=== PATIENT | male | born 1935 | race Caucasian/White ===

== ENCOUNTER 2024-01-22 22:06 | Inpatient (IN) | payer MEDICARE, OTHER, SELFPAY ==
[2024-01-22] VITALS (9 sets, daily range): BP systolic 105–117; BP diastolic 52–64; BMI 19.9
--- NOTE | 2024-01-22 14:05 | ED.GENMED ---
History of Present Illness
General
Chief Complaint: Fever
Source: patient
Exam Limitations: none
Time Seen by Provider: 01/22/24 13:33
History of Present Illness
History of Present Illness:
88-year-old male never been here before presents from [facility] for lethargy and fever. EMS reports that he had some type of procedure on his scrotum yesterday at a different facility. He is a resident of [facility]. Patient is a limited
historian. He denies pain currently. He is unsure why he is in the hospital. Staff at facility noticed change in his cognition from baseline.
Phy Exam
Physical Exam
Physical Exam:
General:well-developed male no acute respiratory distress slightly cachectic in appearance
HEENT: Normocephalic mucosa dry neck is supple
Heart: Regular rate and rhythm no murmurs
Lungs: Clear no wheeze
Abdomen is soft nontender nondistended
exam: There is scrotal swelling. There is an open wound to the left side of the scrotum without drainage.
Extremities: No cyanosis
Neurologic exam: Responsive verbal stimuli oriented to person. No facial asymmetry or unilateral weakness
Course
Orders/Labs/Results
Orders:
Orders
01/22/24 13:56
CR Chest Portable - 1 View Urgent
Comment:
Reason For Exam: fever
Reason Study Needs to be Portable: Unable to Transport
01/22/24 14:00
COVID-19 Antigen Urgent
Source: Nasal Swab
Complete Blood Count/With Diff Urgent
Comprehensive Metabolic Panel Urgent
Lactic Acid Q4H
Comment: CANCEL 2nd LACTIC ACID IF 1st LACTIC ACID IS LESS THAN 2
Blood Culture Routine
SHREYA Source: Blood/Venous
Specimen Description:
Blood Culture Urgent
SHREYA Source: Blood/Venous
Specimen Description:
Influenza A+B Rapid Molecular Urgent
SHREYA Source: Nasal Swab
Specimen Description:
01/22/24 15:12
Lidocaine 2% [Lidocaine Uro-Jet 2%] 1 syringe .ROUTE .[facility]
01/22/24 15:24
Urinalysis Reflex To Culture Urgent
Date Specimen was Collected: 01/22/24
Time Specimen was Collected: 15:22
Urine Microscopic Reflex Cult Urgent
Urine Culture Urgent
SHREYA Source: U
Specimen Description:
Date Specimen was Collected: 01/22/24
Time Specimen was Collected: 15:22
01/22/24 17:47
CT Abd/pelvis W Iv Cont Urgent
Comment:
Reason For Exam: lower abdominal pain
01/22/24 20:03
CefTRIAXone [Rocephin] 1,000 mg IV NOW STA
Abnormal Lab Results
01/22/24 01/22/24
14:00 15:24
RBC 3.98 L 10^6/uL
(4.70-6.10)
Hgb 12.7 L g/dL
(13.0-18.0)
Hct 37.9 L %
(39.0-52.0)
MCV 95.2 H fL
(80.0-94.0)
MCH 31.9 H pg
(27.0-31.0)
Absolute Lymphs (auto) 0.4 L 10^3/uL
(1.2-3.4)
Neutrophils % 79.2 H %
(42.2-75.2)
Lymphocytes % 7.9 L %
(20.5-51.1)
Carbon Dioxide 31 H mmol/L
(22-30)
BUN 21 H mg/dl
(9-20)
Total Protein 6.1 L g/dl
(6.3-8.2)
Urine Ketones Trace A
(Negative)
Urine Nitrite (Reflex) Positive A
(Negative)
Urine Bilirubin 1+ A
(Negative)
Urine Urobilinogen 2+ A
(Neg - 1+)
Leukocyte Esterase Rfl Trace A
(Negative)
Urine Bacteria (Reflex) Moderate A
(Negative)
01/22/24 14:00
01/22/24 14:00
Vital Signs
Initial and Last Documented VS:
Initial Vital Signs
Temp Pulse Resp BP Pulse Ox
99.3 F 69 18 108/56 97
01/22/24 13:40 01/22/24 13:40 01/22/24 13:40 01/22/24 13:40 01/22/24 13:40
Last Documented Vital Signs
Temp Pulse Resp BP Pulse Ox
99.3 F 64 16 107/56 97
01/22/24 13:40 01/22/24 19:00 01/22/24 19:00 01/22/24 17:00 01/22/24 19:00
MDM/Problems Addressed
Differential Diagnosis Includes:
Fatigue reported fever. Question Flu vs COVID versus viral illness. Patient allegedly had a procedure performed yesterday on his scrotum. Attempting to call facility or obtain records. Patient is unaware of the procedure.
Will check labs lactic acid blood culture chest x-ray urinalysis.
*Critical Care Note
Total Time (30-74mins, 75-104mins- exclusive of procedures): Not Applicable
Update Note
Update Note:
UA with UTI.
Spoke with family over the phone several times. They were able to relay that on January 15 at [facility], patient was supposed to have a hydrocelectomy on the left side. He was taken to the OR and incision was made and he was found not to
have a hydrocele. He was thought then to have a hernia. He is due to see a general surgeon as outpatient. Today at the facility the patient was not himself he had a fever. I spoke with nurse at [facility]. They documented a fever at their
facility. They were not able to tell me the temperature it was. They also noted that the wound on his left side of his scrotum opened up today. They were concerned about infection of the wound. CT of the abdomen was performed which demonstrates
a large inguinal hernia with large amount of stool in the hernia without signs of incarceration or strangulation. There is concern with a large amount of stool throughout the colon to suggest fecal impaction. After speaking with the family they
were unhappy with their care at [facility] and prefer not to go back there. They also are concerned about him going to multiple facilities with his dementia. Family request he stay here at [facility] for further evaluation and treatment. Will give
a dose of Rocephin for his UTI. Will admit for further evaluation for fever and UTI.
ED Attending Note
-
Portions of this chart may have been created with voice recognition software.� Occasional wrong word or��sound alike� substitutions may have occurred due to the inherent limitations of voice recognition software.
Discharge Plan
Departure
Patient Disposition: Admit
Date of Disposition: 01/22/24
Time of Disposition: 20:15
Admit to: Telemetry
Presentation/result/management discussed w/ accepting MD/DO: Hospitalist
Discharge Problem:
Acute UTI, Inguinal hernia
Prescriptions:
No Action
loperamide [Anti-Diarrheal (loperamide)] 2 mg Capsule
4 mg PO Q6HPRN PRN (Reason: diarrhea)
thiamine HCl (vitamin B1) 100 mg Tablet
100 mg PO DAILY
guaifenesin 100 mg/5 mL Liquid
200 mg PO Q4HPRN PRN (Reason: cough)
lorazepam 0.5 mg Tablet
0.5 mg PO Q6HPRN PRN (Reason: anxiety)
folic acid 1 mg Tablet
1 mg PO DAILY
divalproex 125 mg Capsule, Delayed Rel Sprinkle
125 mg PO BID
amoxicillin-pot clavulanate 500-125 mg Tablet
1 tab PO BID
mirtazapine 7.5 mg Tablet
15 mg PO HS
aripiprazole 2 mg Tablet
2 mg PO DAILY
Referrals:
Dieudonne Ta DO [Family Provider] -
Interventions
Interventions:
*Risk Screen - Suicide Last Done: 01/22/24 13:55
*General Assessment Last Done: 01/22/24 13:40
*Neglect/Abuse Screening Last Done: 01/22/24 13:40
*ED COVID-19 Vaccine History Last Done: 01/22/24 13:56
ED- Neurological Assessment Last Done: 01/22/24 14:57
ED-Skin Assessment Last Done: 01/22/24 14:57
Discharge Date and Time
Print Language: CHINESE
[2024-01-22 14:21] LABS: % Basophils 0.5 % (0-2); % Eosinophils 3.4 % (0-6); % Immature Granulocytes 0.4 % (0-0.5); % Lymphocytes 7.9 % (20.5-51.1); % Monocytes 8.6 % (1.7-9.3); % Neutrophils 79.2 % (42.2-75.2); Absolute Eosinophils 0.2 10^3/uL (0-0.7); Absolute Lymphocytes 0.4 10^3/uL (1.2-3.4); Absolute Monocytes 0.5 10^3/uL (0.1-0.6); Absolute Neutrophils 4.4 10^3/uL (1.4-6.5); Hematocrit 37.9 % (39.0-52.0); Hemoglobin 12.7 g/dL (13.0-18.0); Mean Corp Hgb Conc. 33.5 g/dL (33.0-37.0); Mean Corpuscular Hgb 31.9 pg (27.0-31.0); Mean Corpuscular Volume 95.2 fL (80.0-94.0); Mean Platelet Volume 9.6 fL (7.4-10.4); Nucleated Red Blood Cells % 0 % (-); Platelet Count 239 10^3/uL (130-400); Red Blood Cell Count 3.98 10^6/uL (4.70-6.10); Red Cell Dist. Width 13.4 % (11.5-14.5); White Blood Cell Count 5.6 10^3/uL (4.8-10.8)
[2024-01-22 14:37] LABS: ALT (SGPT) 19 U/L (0-50); AST (SGOT) 32 U/L (17-59); Albumin 3.5 g/dl (3.5-5.0); Alkaline Phosphatase 100 U/L (38-126); Blood Urea Nitrogen 21 mg/dl (9-20); Calcium 8.9 mg/dl (8.4-10.2); Carbon Dioxide 31 mmol/L (22-30); Chloride 101 mmol/L (98-107); Estimated Creatinine Clearance 55 ml/min; Glucose 95 mg/dl (70-99); Lactic Acid 1.1 mmol/L (0.7-2.0); Potassium 4.1 mmol/L (3.5-5.1); Sodium 139 mmol/L (135-145); Total Bilirubin 0.8 mg/dl (0.2-1.3); Total Protein 6.1 g/dl (6.3-8.2); eGFR > 60.00
[2024-01-22 14:57] LABS: COVID-19 Antigen Negative (Negative)
[2024-01-22 15:40] LABS: Urine Albumin Trace (Neg - Trace); Urine Bilirubin 1+ (Negative); Urine Character Clear (Clear); Urine Color Yellow; Urine Glucose Negative (Negative); Urine Ketone Trace (Negative); Urine Leukocyte Trace (Negative); Urine Nitrite Positive (Negative); Urine Occult Blood Negative (Negative); Urine Specific Gravity 1.025 (<1.030); Urine Urobilinogen 2+ (Neg - 1+)
[2024-01-22 15:54] LABS: Urine Red Blood Cell 0-2 /HPF (0-2); Urine Squamous Cell 0-2 /LPF (Few)
[2024-01-22 15:55] LABS: Urine Bacteria Moderate (Negative); Urine White Cell 0-2 /HPF (0-5)
[2024-01-22] MEDS: ROCEPHIN 1000 MG IV (20:11)
--- NOTE | 2024-01-22 21:29 | CON.GS ---
Medical History
-
Chief Complaint: Dehiscence LEFT scrotal incision, left inguinal hernia
History of Present Illness:
Patient is an 88 yo M with a PMH notable for advanced dementia, seizure disorder, and recent attempted trans scrotal hydrocelectomy by urologist at [place] on 01/16/2024. Per report, at the time of that surgery that identified an inguinal
hernia and aborted the procedure. Since that time he has had opening of his scrotal wound. He has been found to be febrile and lethargic at [facility] prompting presentation to the ER. History is otherwise limited due to patient's severe
dementia. No reports of nausea, vomiting, or inability to pass stool. Reports of LEFT groin pain.
Past Medical History
Past Medical History: Psychiatric (Dementia, seizures)
Past Surgical History: Urological (Attempted hydrocelectomy at [place] on 01/16/2024.)
Social History
Tobacco: Non-Smoker
Alcohol: None
Drug: None
Family History
Family History: Reviewed & Not Pertinent
Allergies / Home Medications
Allergy/AdvReac Type Severity Reaction Status Date / Time
No Known Allergies Allergy Unverified 01/22/24 13:39
�Medication �Instructions �Recorded �Confirmed �Type
amoxicillin 500 mg-potassium 1 tab PO BID 01/22/24 01/22/24 History
clavulanate 125 mg tablet
aripiprazole 2 mg tablet 2 mg PO DAILY 01/22/24 01/22/24 History
divalproex 125 mg capsule,delayed 125 mg PO BID 01/22/24 01/22/24 History
release sprinkle
folic acid 1 mg tablet 1 mg PO DAILY 01/22/24 01/22/24 History
guaifenesin 100 mg/5 mL oral liquid 200 mg PO Q4HPRN PRN cough 01/22/24 01/22/24 History
loperamide 2 mg capsule 4 mg PO Q6HPRN PRN diarrhea 01/22/24 01/22/24 History
(Anti-Diarrheal (loperamide))
lorazepam 0.5 mg tablet 0.5 mg PO Q6HPRN PRN anxiety 01/22/24 01/22/24 History
mirtazapine 7.5 mg tablet 15 mg PO HS 01/22/24 01/22/24 History
thiamine HCl (vitamin B1) 100 mg 100 mg PO DAILY 01/22/24 01/22/24 History
tablet
Review of Systems
-
A 10 point review of systems was completed, and was negative except as per HPI.
Physical Exam
Vital Signs
Temp Pulse Resp BP Pulse Ox
98.4 F 73 16 110/54 98
01/22/24 20:30 01/22/24 20:30 01/22/24 20:30 01/22/24 20:00 01/22/24 20:30
01/21/24 01/22/24 01/23/24
06:59 06:59 06:59
Actual Weight 66.5 kg
Body Mass Index (BMI) 19.9
Lab Results
01/22/24 14:00
01/22/24 14:00
WBC 5.6 10^3/uL (4.8-10.8) 01/22/24 14:00
Hgb 12.7 g/dL (13.0-18.0) L 01/22/24 14:00
Hct 37.9 % (39.0-52.0) L 01/22/24 14:00
Plt Count 239 10^3/uL (130-400) 01/22/24 14:00
Abs Immat Gran (auto) 0.0 10^3/uL (0-0.05) 01/22/24 14:00
Neutrophils % 79.2 % (42.2-75.2) H 01/22/24 14:00
Physical Exam
General: Well Developed, Well Nourished and No Apparent Distress
HEENT: Normocephalic and Anicteric
Respiratory: Non Labored Respirations
Cardiac: Regular Rhythm
GI: Soft, Non Tender and Non Distended
Genito-urinary: Inguinal Hernia (Large LEFT inguinal scrotal hernia, partially reduced, tender with palpation, trans scrotal excision with fibrinous debris, no active purulence or bleeding, visible bowel underlying)
Skin: Warm and Dry
Neuro: Nonfocal/Grossly Intact
Data Reviewed
-
CT Scan: Image Personally Visualized and interpreted and Report Reviewed by me
Labs: Labs Reviewed by me
Assessment / Plan
-
Patient is a 88 yo M p/w large LEFT inguinal scrotal hernia with concern for exposed bowel via recently made Villareal scrotal incision
Low concern for bowel ischemia given the partially reducible nature of his hernia, CT scan imaging, normal WBC, and healthy mucosa of the visible bowel. That being said, the presence of visible bowel via an open wound necessitates more urgent
repair.
Plan for a open LEFT inguinal hernia repair with possible mesh (likely biologic, given increased risk for infections with UTI and contaminated nature of his presentation). The procedure itself, as well as the risks, benefits, and alternatives was
discussed with the patient's DPOA (Yandel Lambert). Specifically, we discussed the risks of bleeding, infection (increased risk), injury to surrounding structures (bowel, nerves, blood supply the testicle, and vas deferens), wound complications,
and recurrence. Typical postprocedural recovery was discussed. All questions answered. Telephone consent obtained.
-- Open LEFT inguinal hernia repair with possible mesh
-- NPO, IVF
-- Abx: Rocephin admin in ED will add Flagyl for improved GI coverage, would tentatively plan for treatment from a GI standpoint for 4 days in addition to coverage for his UTI
-- Admit to Hospitalist post-op
--- NOTE | 2024-01-22 21:48 | W.SUR.PREOP ---
Pre-Operative Surgical Note
-
I have examined this patient prior to the performance of the scheduled procedure.
The patient's condition is unchanged from the time of the current History and
Physical and the patient is able to undergo the scheduled procedure.
--- NOTE | 2024-01-22 23:45 | W.IMMPOSTOP ---
Surgical Immed Post Op Note
-
Primary Surgeon: Gayr
Assisting Surgeon: None
Pre-op Diagnosis: LEFT inguinal hernia, scrotal wound dehiscence
Post-op Diagnosis: LEFT inguinal hernia, scrotal wound dehiscence
Procedure Performed: Open LEFT inguinal hernia repair with mesh, scrotal wound exploration
Anesthesia Type: General
Specimen / Cultures: None
Estimated Blood Loss: 7 cc
Complications: None
Operative Findings:
1. Large inguinoscrotal hernia containing colon, viable
2. Yeison mesh repair with Phasix mesh over Bassini suture repair to recreate floor
3. Scrotal wound packed with WTD gauze
Plan:
-- Routine post-op care, ADAT tomorrow and pain meds
-- Aggressive bowel regimen to prevent constipation as visualized on CT
-- Abx: coverage for UTI should be sufficient
[2024-01-23] VITALS (16 sets, daily range): BP systolic 102–134; BP diastolic 48–70; PULSE 75; O2SAT 97–98; BMI 21.1
--- NOTE | 2024-01-23 00:12 | HPS.HSE ---
Family Physician
-
Family Physician: Dieudonne Ta
Chief Complaint
-
Open Wound
History of Present Illness
Patient is an 88y M with PMH significant for dementia and recent surgery who presents to ED for evaluation of open L scrotal wound. History obtained from patient and ED staff. Patient reportedly underwent surgery at [facility] on 01/16/24. The
surgery was for suspected hydrocele; however, once scrotal sac was opened it was noted that the contents were bowel / hernia and not hydrocele. No further intervention was apparently performed at that time. Patient was discharged and today noted
to have an open wound of the L scrotum. He was sent to the ED for further evaluation and treatment.
Patient denies any pain. He denies any fevers / chills. He states that he has had 'trouble' urinating for the past 24 hours or so - though he cannot be more specific.
Evaluation in the ED reveals an open wound on the L lower scrotum without bleeding or discharge. There is L inguinal hernia with bowel contents by exam and by CT imaging.
Patient was evaluated by Surgery and taken to the OR this evening for L inguinal hernia repair and scrotum wound exploration.
Medical History
Past Medical History
Past Medical History: Reports Other
Additional Past Medical History:
Senile Dementia
Past Surgical History: Reports Other
Additional Past Surgical History:
Left Hydrocele Repair - Aborted / No Hydrocele
Social History
Tobacco: Non-smoker
Alcohol: Occasional
Drug: None
Family History
Family History: Not pertinent
Allergies / Home Medications
Allergies reflects when Allergies were last updated in [facility].
Home Medications with original date entered in [facility]
Allergy/Medication List:
Allergies
Allergy/AdvReac Type Severity Reaction Status Date / Time
No Known Allergies Allergy Unverified 01/22/24 13:39
Home Medications
amoxicillin 500 mg-potassium clavulanate 125 mg tablet 1 tab PO BID 01/22/24
aripiprazole 2 mg tablet 2 mg PO DAILY 01/22/24
divalproex 125 mg capsule,delayed release sprinkle 125 mg PO BID 01/22/24
folic acid 1 mg tablet 1 mg PO DAILY 01/22/24
guaifenesin 100 mg/5 mL oral liquid 200 mg PO Q4HPRN PRN cough 01/22/24
loperamide 2 mg capsule (Anti-Diarrheal (loperamide)) 4 mg PO Q6HPRN PRN diarrhea 01/22/24
lorazepam 0.5 mg tablet 0.5 mg PO Q6HPRN PRN anxiety 01/22/24
mirtazapine 7.5 mg tablet 15 mg PO HS 01/22/24
thiamine HCl (vitamin B1) 100 mg tablet 100 mg PO DAILY 01/22/24
Review of Systems
-
History Source: Patient
A 12 point ROS was completed and negative except as noted: Yes
Constitutional: Denies Fever or Chills
Respiratory: Denies Cough or Trouble Breathing
Cardiac: Denies Chest Pain or Palpitations
Abdomen/GI: Reports Constipated; Denies Abdominal Pain, Nausea or Vomiting
: Reports Difficulty Voiding; Denies Dysuria or Frequency
Musculoskeletal: Denies Joint Pain or Edema
Neurological: Denies Dizzy or Headache
Psych: Denies Depression or Anxiety
Physical Exam
Vital Signs
Vital Signs
Temp Pulse Resp BP Pulse Ox
99.3 F 64 18 122/52 97
01/22/24 23:48 01/23/24 00:00 01/23/24 00:00 01/23/24 00:00 01/23/24 00:00
Physical Exam
General: Other (88y M in no acute distress.)
HEENT: Moist mucous membranes and PERRLA
Respiratory: Clear; No Wheezes, Rales or Rhonchi
Cardiac: S1/S2 and Regular Rhythm; No Murmur
GI: Soft, Non Tender, Non Distended and Normal Bowel Sounds
Genito-urinary: Other (Enlarged scrotum with bowel contents / pos bowel sounds. No focal tenderness. Wound / defect L lower scrotum without erythema / induration / bleeding or discharge. Bleeding from urethra.)
Musculoskeletal: No Clubbing, No Cyanosis and No Edema
Neuro: Awake and Alert
Psych: No Anxious or Depressed
Laboratory Results
-
Laboratory Results
Lactic Acid Cancelled 01/22/24 18:00
Total Bilirubin 0.8 mg/dl (0.2-1.3) 01/22/24 14:00
AST 32 U/L (17-59) 01/22/24 14:00
ALT 19 U/L (0-50) 01/22/24 14:00
Alkaline Phosphatase 100 U/L (38-126) 01/22/24 14:00
Impression/Plan
-
A/P: Patient is an 88y M with PMH significant for dementia who presents to ED for evaluation of L scrotal wound after recent surgery.
Left Inguinal Hernia
Scrotal Wound Dehiscence
- Admit for further evaluation and treatment.
- s/p open inguinal hernia repair with mesh and scrotal wound exploration / packing.
- Colon in the hernia sac was viable.
- Post-op pain control, abx, etc.
- Local care for scrotal wound / packing / etc.
- Follow for any new / worsening symptoms.
Possible UTI
- Patient started on Augmentin at nursing facility on 01/15 for suspected UTI.
- UA in the ED today with bacteria and nitrites but no WBC (? due to pre-existing abx).
- Continue IV abx for now pending culture data.
- Bladder scan protocol and straight cath if needed.
Senile Dementia with Behavioral Disturbance
- Stable. Patient not currently agitated, anxious, etc.
- Continue usual home medication regimen.
- Haldol PRN for acute agitation.
DVT Prophylaxis: Lovenox
Code Status: DNR per POLST
--- NOTE | 2024-01-23 00:50 | PTCARENOTE ---
Pt arrived to room 433-01 with PACU nurses. Upon arrival, pt noted to be nonverbal, eyes open moving hands, not responding to verbal stimuli. RN bringing pt up stated, 'Dr. Hughes is aware of his nonverbal status, said it will pass by- by morning
time.' Pt VSS.
--- NOTE | 2024-01-23 01:20 | RR ---
A Rapid Response was called on this patient, please see Rapid Response form.
Pt nonverbal, not responding to stimuli upon arrival from PACU. Unable to complete NIH. RIBBON BLOCKMAKER Justina Souza notified. RIBBON BLOCKMAKER at bedside ordered to call rapid with stroke alert. Rapid and stroke alert called. EKG done, BP 124/61, HR 66, R 14, 94% RA,
97.5, BS 96. BMP, CBC, Mag ordered. Upon arrival of MANAGER VALIDATION, pt alert answering questions. STAT head CT ordered. No further orders.
[2024-01-23] MEDS: NSS 1000 IV ×2 (01:22→08:41)
--- NOTE | 2024-01-23 01:22 | W.PN.UPDATE ---
Update Note
Progress Note Update
JIG BORING MACHINE OPERATOR FOR METAL/ Stroke alert
Patient is awake, open his eyes but not responding to verbal stimuli, not following direction. Vital signs within normal limits Bs 96, bp 124/59, 66, RR 14, temp 97.5.
By the time that JIG BORING MACHINE OPERATOR FOR METAL team arrived, patient back to baseline. Discussed the case with neurologist environmental scientists.
Plan to process with head CT and patient will be seen by neurology in am.
Head CT result shows no acute abnormalities.
[2024-01-23 01:33] LABS: Glucose - Point of Care 96 mg/dl (70-99)
[2024-01-23] MEDS: REMERON PO (01:41)
[2024-01-23 01:50] LABS: Hematocrit 39.5 % (39.0-52.0); Hemoglobin 13.6 g/dL (13.0-18.0); Mean Corp Hgb Conc. 34.4 g/dL (33.0-37.0); Mean Corpuscular Hgb 32.2 pg (27.0-31.0); Mean Corpuscular Volume 93.4 fL (80.0-94.0); Mean Platelet Volume 9.2 fL (7.4-10.4); Platelet Count 222 10^3/uL (130-400); Red Blood Cell Count 4.23 10^6/uL (4.70-6.10); Red Cell Dist. Width 13.4 % (11.5-14.5); White Blood Cell Count 9.4 10^3/uL (4.8-10.8)
[2024-01-23 02:01] LABS: Blood Urea Nitrogen 17 mg/dl (9-20); Calcium 8.5 mg/dl (8.4-10.2); Carbon Dioxide 24 mmol/L (22-30); Chloride 102 mmol/L (98-107); Estimated Creatinine Clearance 75 ml/min; Glucose 101 mg/dl (70-99); Potassium 3.8 mmol/L (3.5-5.1); Sodium 142 mmol/L (135-145); eGFR > 60.00
[2024-01-23] MEDS: SENOKOT PO (02:19)
[2024-01-23] MEDS: ZOSYN 50 IV ×4 (02:20→20:34)
[2024-01-23 05:40] LABS: Magnesium 2.1 mg/dl (1.6-2.3)
[2024-01-23] MEDS: COLACE 100 MG PO ×2 (08:30→20:34)
[2024-01-23] MEDS: VITAMIN B1 100 MG PO (08:30)
[2024-01-23] MEDS: DEPAKOTE SPRINKLE 125 MG PO ×2 (08:30→20:34)
[2024-01-23] MEDS: MIRALAX 17 GRAMS PO (08:30)
[2024-01-23] MEDS: DULCOLAX 10 MG RECTAL (08:30)
[2024-01-23] MEDS: FOLVITE 1 MG PO (08:30)
--- NOTE | 2024-01-23 08:40 | PTCARENOTE ---
Addendum entered by Belkys Benitez RN 01/23/24 16:42:
01/22- Patient is calm and cooperative when brought out to Nurses Station. AAOX1; Flat affect; Confused but Calm/Cooperative. Seen by Urology. Urology advised if Acute Urinary Retention is still persisting upon next bladder scan, then administer
a Da Silva Catheter. Patient able to eat his Clear Liquid diet with occasional coughing upon oral intake. Speech Eval previously placed. Continue to monitor.
Original Note:
01/22- Patient is impulsive; repeatedly removing telemetry and dipens. He tugs at his IV, but R-forearm IV is still CDI, infusing fluids without issue. He made 1 attempt to get out of bed on his own. Bed Alarm intact. Requested MedSitter;
Notified Physician. Patient able to be redirected without issue each time. Continue to monitor.
--- NOTE | 2024-01-23 08:40 | CON.NEURO ---
Consultation
Order
Date of Consultation: 01/23/24
Requesting Provider: Justina Souza CRNP
Reason for Consult: encephalopathy
CC: none
HPI: This is an 88-year-old man who presented to [facility] on January 22, 2024 with fever and lethargy. He underwent open left inguinal hernia repair with mesh, scrotal wound exploration
of the large inguinoscrotal hernia.
Neurology consultation was requested for further evaluation and management of a spell of staring and unresponsiveness that was witnessed around 1:00 AM on 01/23/2024.
According to EMR patient is on divalproex 125 mg BID that he has not received on 01/22/2024 based on MAR
ER VS: 108/56, 69, afebrile
PDMP:Lorazepam 0.5 Mg�30 tabs filled in on 11/19/2023.
Labs: Glucose 101, normal WBCs, calcium, UA�positive for leukocyte esterase, nitrates, bacteria
CT head-atrophy
PMH:dementia, seizure DO, ALEXUS, PTSD
PSH: left inguinal hernia repair, appendectomy
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
FH:not contributory
All:NKDA
ROS: Negative for headache, weakness. Positive for chronic cognitive deficits.
General: Well developed. In no acute distress.
Cardio: Regular rate and rhythm without murmur. Extremities are without cyanosis or edema.
Neuro:
Mental Status: Alert, oriented to name, age, date of , president. Poor attention and comprehension. Follows simple requests. Increased processing time. Perseverates. Expressive greater than receptive aphasia.
Cranial Nerves: Pupils are equally round and reactive to light. EOMs full. BTT BL No ptosis. No nystagmus. No facial weakness. No dysarthria.
Motor: Increased motor tone in upper and lower extremities. Moves all limbs spontaneously purposefully symmetrical.
Reflexes: Bilateral grasp
Sensory: Limited exam due to poor attention
Coordination: Intermittent resting right hand tremor.
Gait: deferred
Assessment and Plan:
I. Transient spell of starring and speech arrest. Probable complex focal seizure.
II. Chronic neurodegenerative encephalopathy.
III. 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
-Fall and seizure precautions
-Restart Depakote
-Avoid dopamine blockers
-Will obtain collateral history from patient's family about cognitive and functional baseline clarify history of epilepsy.
-PT
-DVT prophylaxys
I personally reviewed all radiology and labs along with past medical records pertinent to current medical problems. Total time spent in patient care is 60 minutes.
Thank you for allowing us to participate in the care of this patient. We will continue to follow. Please do not hesitate to contact us with any questions or concerns.
Subjective/Objective
Subjective Data
Date of Service: January 23, 2024
Objective Data
Vital Signs
Temp Pulse Resp BP Pulse Ox
36.4 C 80 16 122/59 95
01/23/24 07:05 01/23/24 07:05 01/23/24 07:05 01/23/24 07:05 01/23/24 07:05
Lab Results
01/23/24 01:30
01/23/24 01:30
Sodium 142 mmol/L (135-145) 01/23/24 01:30
Potassium 3.8 mmol/L (3.5-5.1) 01/23/24 01:30
BUN 17 mg/dl (9-20) 01/23/24 01:30
Glucose 101 mg/dl (70-99) H 01/23/24 01:30
Calcium 8.5 mg/dl (8.4-10.2) 01/23/24 01:30
Patient Allergies
No Known Allergies Allergy (Unverified 01/22/24 13:39)
Medications
-
Active Medications
Generic Name Dose Route Start Last Admin
Trade Name Freq PRN Reason Stop Dose Admin
Acetaminophen 650 mg 01/22/24 21:44
Acetaminophen 325 Mg Tablet PO 02/19/24 21:43
Q4HPRN PRN
mild pain
Aripiprazole 2 mg 01/23/24 08:00
Aripiprazole 2 Mg Tablet PO 02/20/24 07:59
DAILY JORI
Bisacodyl 10 mg 01/23/24 08:00
Bisacodyl 10 Mg Rectal Suppository RECTAL 02/20/24 07:59
DAILY JORI
Divalproex Sodium 125 mg 01/23/24 08:00
Divalproex Sodium 125 Mg Sprinkle Capsule PO 02/20/24 07:59
BID JORI
Docusate Sodium 100 mg 01/23/24 08:00
Docusate Sodium 100 Mg Capsule PO 02/20/24 07:59
BID JORI
Enoxaparin Sodium 40 mg 01/23/24 18:00
Enoxaparin Sodium 40 Mg/0.4 Ml Syringe SC 02/20/24 17:59
QPM JORI
Folic Acid 1 mg 01/23/24 08:00
Folic Acid 1 Mg Tablet PO 02/20/24 07:59
DAILY JORI
Haloperidol Lactate 1 mg 01/22/24 23:36
Haloperidol 5 Mg/Ml 1 Ml Vial IV 02/19/24 23:35
Q4HPRN PRN
Agitation
Sodium Chloride 1,000 mls @ 100 mls/hr 01/22/24 23:36 01/23/24 01:22
Nss IV 1,000 mls
.Q10H JORI Administration
Piperacillin Sod/Tazobactam Sod 3.375 gram in 50 mls @ 100 mls/hr 01/23/24 02:00 01/23/24 02:20
Zosyn IV 50 mls
Q6H JORI Administration
Mirtazapine 15 mg 01/22/24 23:00 01/23/24 01:41
Mirtazapine 15 Mg Regular Release Tablet PO 02/19/24 22:59 Not Given
HS JORI
Morphine Sulfate 2 mg 01/23/24 08:37
Morphine 2 Mg/Ml Syringe IV 02/06/24 08:36
Q4HPRN PRN
severe pain
Ondansetron HCl 4 mg 01/22/24 23:36
Ondansetron 4 Mg/2 Ml Vial IV 02/19/24 23:35
Q6HPRN PRN
nausea and vomiting
Oxycodone HCl 5 mg 01/23/24 08:37
Oxycodone 5 Mg Regular Release Tablet PO 02/06/24 08:36
Q4HPRN PRN
mod pain
Polyethylene Glycol 17 grams 01/23/24 08:00
Polyethylene Glycol Powder 17 Grams Packet PO 02/20/24 07:59
DAILY JORI
Sennosides 17.2 mg 01/22/24 23:36 01/23/24 02:19
Sennosides (Senokot) 8.6 Mg Tablet PO 02/19/24 23:35 Not Given
HS JORI
Sodium Chloride 0 flush 01/22/24 22:00
Sodium Chloride 0.9% (Flush) Syringe IV 02/19/24 21:59
PER PROTOCOL JORI
Sodium Chloride 0 flush 01/22/24 22:00
Sodium Chloride 0.9% (Flush) Syringe IV 02/19/24 21:59
PER PROTOCOL JORI
Thiamine HCl 100 mg 01/23/24 08:00
Thiamine 100 Mg Tablet PO 02/20/24 07:59
DAILY JORI
Home Medications
�Medication �Instructions �Recorded
amoxicillin 500 mg-potassium 1 tab PO BID 01/22/24
clavulanate 125 mg tablet
aripiprazole 2 mg tablet 2 mg PO DAILY 01/22/24
divalproex 125 mg capsule,delayed 125 mg PO BID 01/22/24
release sprinkle
folic acid 1 mg tablet 1 mg PO DAILY 01/22/24
guaifenesin 100 mg/5 mL oral liquid 200 mg PO Q4HPRN PRN cough 01/22/24
loperamide 2 mg capsule 4 mg PO Q6HPRN PRN diarrhea 01/22/24
(Anti-Diarrheal (loperamide))
lorazepam 0.5 mg tablet 0.5 mg PO Q6HPRN PRN anxiety 01/22/24
mirtazapine 7.5 mg tablet 15 mg PO HS 01/22/24
thiamine HCl (vitamin B1) 100 mg 100 mg PO DAILY 01/22/24
tablet
Vital Signs and Labs
-
Vital Signs and Labs:
Vital Signs
Temp Pulse Resp BP Pulse Ox
36.4 C 80 16 122/59 95
01/23/24 07:05 01/23/24 07:05 01/23/24 07:05 01/23/24 07:05 01/23/24 07:05
Lab Results
01/23/24 01:30
01/23/24 01:30
Sodium 142 mmol/L (135-145) 01/23/24 01:30
Potassium 3.8 mmol/L (3.5-5.1) 01/23/24 01:30
BUN 17 mg/dl (9-20) 01/23/24 01:30
Glucose 101 mg/dl (70-99) H 01/23/24 01:30
Calcium 8.5 mg/dl (8.4-10.2) 01/23/24 01:30
Medications
-
Medications:
Generic Name Dose Route Start Last Admin
Trade Name Freq PRN Reason Stop Dose Admin
Acetaminophen 650 mg 01/22/24 21:44
Acetaminophen 325 Mg Tablet PO 02/19/24 21:43
Q4HPRN PRN
mild pain
Aripiprazole 2 mg 01/23/24 08:00
Aripiprazole 2 Mg Tablet PO 02/20/24 07:59
DAILY JORI
Bisacodyl 10 mg 01/23/24 08:00 01/23/24 08:30
Bisacodyl 10 Mg Rectal Suppository RECTAL 02/20/24 07:59 10 mg
DAILY JORI Administration
Divalproex Sodium 125 mg 01/23/24 08:00 01/23/24 08:30
Divalproex Sodium 125 Mg Sprinkle Capsule PO 02/20/24 07:59 125 mg
BID JORI Administration
Docusate Sodium 100 mg 01/23/24 08:00 01/23/24 08:30
Docusate Sodium 100 Mg Capsule PO 02/20/24 07:59 100 mg
BID JORI Administration
Enoxaparin Sodium 40 mg 01/23/24 18:00
Enoxaparin Sodium 40 Mg/0.4 Ml Syringe SC 02/20/24 17:59
QPM JORI
Folic Acid 1 mg 01/23/24 08:00 01/23/24 08:30
Folic Acid 1 Mg Tablet PO 02/20/24 07:59 1 mg
DAILY JORI Administration
Haloperidol Lactate 1 mg 01/22/24 23:36
Haloperidol 5 Mg/Ml 1 Ml Vial IV 02/19/24 23:35
Q4HPRN PRN
Agitation
Sodium Chloride 1,000 mls @ 100 mls/hr 01/22/24 23:36 01/23/24 08:41
Nss IV 1,000 mls
.Q10H JORI Administration
Piperacillin Sod/Tazobactam Sod 3.375 gram in 50 mls @ 100 mls/hr 01/23/24 02:00 01/23/24 08:39
Zosyn IV 50 mls
Q6H JORI Administration
Mirtazapine 15 mg 01/22/24 23:00 01/23/24 01:41
Mirtazapine 15 Mg Regular Release Tablet PO 02/19/24 22:59 Not Given
HS JORI
Morphine Sulfate 2 mg 01/23/24 08:37
Morphine 2 Mg/Ml Syringe IV 02/06/24 08:36
Q4HPRN PRN
severe pain
Ondansetron HCl 4 mg 01/22/24 23:36
Ondansetron 4 Mg/2 Ml Vial IV 02/19/24 23:35
Q6HPRN PRN
nausea and vomiting
Oxycodone HCl 5 mg 01/23/24 08:37
Oxycodone 5 Mg Regular Release Tablet PO 02/06/24 08:36
Q4HPRN PRN
mod pain
Polyethylene Glycol 17 grams 01/23/24 08:00 01/23/24 08:30
Polyethylene Glycol Powder 17 Grams Packet PO 02/20/24 07:59 17 grams
DAILY JORI Administration
Sennosides 17.2 mg 01/22/24 23:36 01/23/24 02:19
Sennosides (Senokot) 8.6 Mg Tablet PO 02/19/24 23:35 Not Given
HS JORI
Sodium Chloride 0 flush 01/22/24 22:00
Sodium Chloride 0.9% (Flush) Syringe IV 02/19/24 21:59
PER PROTOCOL JORI
Sodium Chloride 0 flush 01/22/24 22:00
Sodium Chloride 0.9% (Flush) Syringe IV 02/19/24 21:59
PER PROTOCOL JORI
Thiamine HCl 100 mg 01/23/24 08:00 01/23/24 08:30
Thiamine 100 Mg Tablet PO 02/20/24 07:59 100 mg
DAILY JORI Administration
Home Medications
-
Home Medications
amoxicillin 500 mg-potassium clavulanate 125 mg tablet 1 tab PO BID 01/22/24
aripiprazole 2 mg tablet 2 mg PO DAILY 01/22/24
divalproex 125 mg capsule,delayed release sprinkle 125 mg PO BID 01/22/24
folic acid 1 mg tablet 1 mg PO DAILY 01/22/24
guaifenesin 100 mg/5 mL oral liquid 200 mg PO Q4HPRN PRN cough 01/22/24
loperamide 2 mg capsule (Anti-Diarrheal (loperamide)) 4 mg PO Q6HPRN PRN diarrhea 01/22/24
lorazepam 0.5 mg tablet 0.5 mg PO Q6HPRN PRN anxiety 01/22/24
mirtazapine 7.5 mg tablet 15 mg PO HS 01/22/24
thiamine HCl (vitamin B1) 100 mg tablet 100 mg PO DAILY 01/22/24
[2024-01-23] MEDS: ABILIFY 2 MG PO (08:54)
--- NOTE | 2024-01-23 12:14 | W.PN.HOSP.TC ---
Today's Communication/Plan
-
IVF till pm
IV abx
ADAT per surgery
bowel regimen
Assessment / Plan
Assessment / Plan
General: Other (88y M in no acute distress.)
HEENT: Moist mucous membranes and PERRLA
Respiratory: Clear; No Wheezes, Rales or Rhonchi
Cardiac: S1/S2 and Regular Rhythm; No Murmur
GI: Soft, Non Tender, Non Distended and Normal Bowel Sounds
Genito-urinary: Other (Enlarged scrotum with bowel contents / pos bowel sounds. No focal tenderness. Wound / defect L lower scrotum without erythema / induration / bleeding or discharge. Bleeding from urethra.)
Musculoskeletal: No Clubbing, No Cyanosis and No Edema
Neuro: Awake and Alert
Psych: No Anxious or Depressed
A/P: Patient is an 88y M with PMH significant for dementia who presents to ED for evaluation of L scrotal wound after recent surgery.
Left Inguinal Hernia
Scrotal Wound Dehiscence
- s/p open inguinal hernia repair with mesh and scrotal wound exploration / packing.
- Colon in the hernia sac was viable.
- Post-op pain control, abx, etc.
- Local care for scrotal wound / packing / etc.
- Follow for any new / worsening symptoms.
- Diet advancement per surgery.
Constipation
-started on bowel regimen
Possible UTI
- Patient started on Augmentin at nursing facility on 01/15 for suspected UTI.
- UA in the ED with bacteria and nitrites but no WBC (? due to pre-existing abx).
- Continue IV abx for now pending culture data.
- Bladder scan protocol and straight cath if needed.
Senile Dementia with Behavioral Disturbance
- Stable. Patient not currently agitated, anxious, etc.
- Continue usual home medication regimen.
-
PTSD
-Monitor mentation closely. Episode of agitation in the hospital per nephew.
DVT Prophylaxis: Lovenox
Code Status: DNR
Updated patient POA/nephew Sean over the phone in details. CODE STATUS was confirmed DNR/DNI.
Anticipated Discharge: > 48 hours
Subjective/Interval History
-
Date of Service: January 23, 2024
states of mild headache this morning
denies abd/groin pain
Objective Data
-
Labs:
Laboratory Results
01/23/24
01:30
WBC 9.4
Hgb 13.6
Hct 39.5
Plt Count 222
Sodium 142
Potassium 3.8
Chloride 102
Carbon Dioxide 24
BUN 17
Creatinine 0.7
Glucose 101 H
Calcium 8.5
Vital Signs:
Vital Signs
Temp Pulse Resp BP Pulse Ox
97.7 F 80 16 120/59 96
01/23/24 11:00 01/23/24 11:00 01/23/24 11:00 01/23/24 11:00 01/23/24 11:00
Data Reviewed
-
Total Time Spent with Patient (in minutes): 51
[2024-01-23] MEDS: LOVENOX 40 MG SC (15:30)
--- NOTE | 2024-01-23 16:09 | CM ---
lead project manager reviewed patient's chart and met with patient and patient lives at [facility] memory care assisted living, per patient's nephew in law, Sean, who is POA for patient. Patient requires assistance with adl's and uses a walker with
ambulation. Patient has difficulty when in the hospital per nephew in law. Patient is current with [facility], employment case manager sent a referral to [facility].
[facility]
[phone]

PCP: Dr. Ta
Nneka WHITESIDE at [facility]
[phone]
--- NOTE | 2024-01-23 16:45 | W.PN.GS2 ---
Today's Communication / Plan
-
`
Assessment / Plan
-
Assessment: 88 y/o male POD#1 s/p Open LEFT inguinal hernia repair with mesh, scrotal wound exploration
AFVSS
post op urinary retention
wounds and surgical site looks well.
Plan: if continued urinary retention placed order for Da Silva catheter
local wound care ordered for left scrotum
advance to full liquid diet
will follow
Subjective Data
-
Date of Service: January 23, 2024
pt seen and examined
nursing at bedside straight cath for pt
pt denies pain
Objective Data
-
Intake and Output
01/22/24 01/23/24 01/24/24
06:59 06:59 06:59
Output Total 500 / 500
Balance -500 / -500
Output:
Straight cath output 500 / 500
Vital Signs
Temp Pulse Resp BP Pulse Ox
98.5 F 73 17 132/61 95
01/23/24 15:00 01/23/24 15:00 01/23/24 15:00 01/23/24 15:00 01/23/24 15:00
Lab Results
01/23/24 01:30
01/23/24 01:30
Calcium 8.5 mg/dl (8.4-10.2) 01/23/24 01:30
Magnesium 2.1 mg/dl (1.6-2.3) 01/23/24 01:30
Total Bilirubin 0.8 mg/dl (0.2-1.3) 01/22/24 14:00
AST 32 U/L (17-59) 01/22/24 14:00
ALT 19 U/L (0-50) 01/22/24 14:00
Alkaline Phosphatase 100 U/L (38-126) 01/22/24 14:00
Total Protein 6.1 g/dl (6.3-8.2) L 01/22/24 14:00
Albumin 3.5 g/dl (3.5-5.0) 01/22/24 14:00
Physical Exam
-
NAD alert and oriented only to self
left inguinal incision with glue dressing
left scrotum with open wound
[2024-01-23] MEDS: SENOKOT 17.2 MG PO (21:02)
[2024-01-23] MEDS: REMERON 15 MG PO (21:02)
[2024-01-24] MEDS: ZOSYN 50 IV ×4 (01:19→21:07)
--- NOTE | 2024-01-24 01:43 | PTCARENOTE ---
At 0100, patient was bladder scanned for 432 mls. Order was placed owusu catheter. Procedure explained. Owusu was placed; however, patient was trying to pull at and remove owusu tubing. B/L soft wrist restraints and hand mitts applied. See chart for
restraint order.
[2024-01-24 06:00] VITALS: BMI 19.4
[2024-01-24 07:02] VITALS: BP 124/70
[2024-01-24] MEDS: DEPAKOTE SPRINKLE 125 MG PO ×2 (08:32→21:07)
[2024-01-24] MEDS: COLACE 100 MG PO (08:32)
[2024-01-24] MEDS: VITAMIN B1 100 MG PO (08:32)
[2024-01-24] MEDS: DULCOLAX 10 MG RECTAL (08:32)
[2024-01-24] MEDS: FOLVITE 1 MG PO (08:32)
[2024-01-24] MEDS: ABILIFY 2 MG PO (08:33)
[2024-01-24] MEDS: MIRALAX 17 GRAMS PO (08:33)
[2024-01-24 08:36] LABS: % Basophils 0.2 % (0-2); % Eosinophils 0.1 % (0-6); % Immature Granulocytes 0.4 % (0-0.5); % Lymphocytes 3.6 % (20.5-51.1); % Neutrophils 86.7 % (42.2-75.2); Absolute Lymphocytes 0.3 10^3/uL (1.2-3.4); Absolute Monocytes 0.8 10^3/uL (0.1-0.6); Absolute Neutrophils 7.9 10^3/uL (1.4-6.5); Hematocrit 40.6 % (39.0-52.0); Hemoglobin 13.8 g/dL (13.0-18.0); Mean Corpuscular Hgb 32.9 pg (27.0-31.0); Mean Corpuscular Volume 96.7 fL (80.0-94.0); Mean Platelet Volume 9.3 fL (7.4-10.4); Nucleated Red Blood Cells % 0 % (-); Platelet Count 243 10^3/uL (130-400); Red Cell Dist. Width 13.4 % (11.5-14.5); White Blood Cell Count 9.1 10^3/uL (4.8-10.8)
--- NOTE | 2024-01-24 09:40 | W.PN.GS2 ---
Today's Communication / Plan
-
ADAT
Urology consult
Assessment / Plan
-
Assessment: 88 y/o male POD#2 s/p Open LEFT inguinal hernia repair with mesh, scrotal wound exploration
AFVSS
post op urinary retention, owusu placed
wounds and surgical site looks well
Plan: consult placed to urology to follow along with us
continue local wound care
continue bowel regimen
ok to advance to regular diet from surgical standpoint, given poor mentation will consult FOUNDATION RELATIONS DIRECTOR for recommendations
will follow
Subjective Data
-
Date of Service: January 24, 2024
Patient seen and examined at bedside with Dr. Reinoso. Denies acute complaints but confused/restrained.
Objective Data
-
Intake and Output
01/23/24 01/24/24 01/25/24
06:59 06:59 06:59
Intake Total 1200 / 1200
Output Total 1000 / 1000
Balance 200 / 200
Intake:
IV fluids (Total) 1200 / 1200
IV piggybacks 0 / 0
Output:
Urine, Owusu 400 / 400
Urine, Voided 100 / 100
Straight cath output 500 / 500
Other:
Number of approximated SMALL 1
amounts of urine
How many times incontinent 1
SMALL amount urine
How many times incontinent 1
SATURATED amount urine
Vital Signs
Temp Pulse Resp BP Pulse Ox
98.2 F 72 18 124/70 99
01/24/24 07:02 01/24/24 07:02 01/24/24 07:02 01/24/24 07:02 01/24/24 07:02
Lab Results
01/24/24 07:40
Calcium 8.5 mg/dl (8.4-10.2) 01/23/24 01:30
Magnesium 2.1 mg/dl (1.6-2.3) 01/23/24 01:30
Total Bilirubin 0.8 mg/dl (0.2-1.3) 01/22/24 14:00
AST 32 U/L (17-59) 01/22/24 14:00
ALT 19 U/L (0-50) 01/22/24 14:00
Alkaline Phosphatase 100 U/L (38-126) 01/22/24 14:00
Total Protein 6.1 g/dl (6.3-8.2) L 01/22/24 14:00
Albumin 3.5 g/dl (3.5-5.0) 01/22/24 14:00
Physical Exam
-
NAD alert and oriented only to self
left inguinal incision with glue dressing
left scrotum with open wound
owusu with clear, yellow urine
[2024-01-24 09:58] LABS: Blood Urea Nitrogen 17 mg/dl (9-20); Calcium 8.6 mg/dl (8.4-10.2); Carbon Dioxide 27 mmol/L (22-30); Chloride 102 mmol/L (98-107); Estimated Creatinine Clearance 61 ml/min; Glucose 105 mg/dl (70-99); Potassium 3.9 mmol/L (3.5-5.1); Sodium 141 mmol/L (135-145); eGFR > 60.00
--- NOTE | 2024-01-24 11:06 | W.PN.NEURO.1 ---
Today's Communication / Plan
-
.
Subjective/Objective
Subjective Data
Date of Service: January 24, 2024
Neurology Progress Note
Mr. Finn reports no complaints. He gas been normotensive and afebrile.
The patient was restarted on Depakote.
MAR: reviewed
According to patient's niece Mr. Finn was residing in [place] alone before he was relocated to assisted living in [place] 2 years ago. He has been in memory care over the last year and has been using rolling walker, able to feed and dress
himself. There is no family history of epilepsy who witnessed seizures.
PMH:dementia, L4, ALEXUS, PTSD
PSH: left inguinal hernia repair, appendectomy
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
FH:not contributory
All:NKDA
ROS: Negative for headache, weakness. Positive for chronic cognitive deficits.
General: Well developed. In no acute distress.
Cardio: Regular rate and rhythm without murmur. Extremities are without cyanosis or edema.
Neuro:
Mental Status: Alert, oriented to self, not to place([place]). Poor attention and comprehension. Follows simple requests. Increased processing time. Perseverates. Expressive greater than receptive aphasia.
Cranial Nerves: Pupils are equally round and reactive to light. EOMs full. BTT BL No ptosis. No nystagmus. No facial weakness. No dysarthria.
Motor: Increased motor tone in upper and lower extremities. Atrophy in LEs. Moves all limbs spontaneously purposefully symmetrical.
Reflexes: Bilateral grasp
Sensory: Limited exam due to poor attention
Coordination: no tremors.
Gait: deferred
Assessment and Plan:
I. Transient spell of starring and speech arrest. Back to baseline.
II. Chronic neurodegenerative encephalopathy.
III. 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
-Fall and seizure precautions
-Continue Depakote
-Avoid dopamine blockers
-PT
-DVT prophylaxis
-Please recall neurology service with any questions or concerns.
I personally reviewed all radiology and labs along with past medical records pertinent to current medical problems. Total time spent in patient care is 36 minutes.
Thank you for allowing us to participate in the care of this patient. Please do not hesitate to contact us with any questions or concerns.
Objective Data
Vital Signs
Temp Pulse Resp BP Pulse Ox
36.8 C 72 18 124/70 99
01/24/24 07:02 01/24/24 07:02 01/24/24 07:02 01/24/24 07:02 01/24/24 07:02
Lab Results
01/24/24 07:40
01/24/24 07:40
Sodium 141 mmol/L (135-145) 01/24/24 07:40
Potassium 3.9 mmol/L (3.5-5.1) 01/24/24 07:40
BUN 17 mg/dl (9-20) 01/24/24 07:40
Glucose 105 mg/dl (70-99) H 01/24/24 07:40
Calcium 8.6 mg/dl (8.4-10.2) 01/24/24 07:40
Patient Allergies
No Known Allergies Allergy (Unverified 01/22/24 13:39)
Vital Signs and Labs
-
Vital Signs and Labs:
Vital Signs
Temp Pulse Resp BP Pulse Ox
36.8 C 72 18 124/70 99
01/24/24 07:02 01/24/24 07:02 01/24/24 07:02 01/24/24 07:02 01/24/24 08:35
Lab Results
01/24/24 07:40
01/24/24 07:40
Sodium 141 mmol/L (135-145) 01/24/24 07:40
Potassium 3.9 mmol/L (3.5-5.1) 01/24/24 07:40
BUN 17 mg/dl (9-20) 01/24/24 07:40
Glucose 105 mg/dl (70-99) H 01/24/24 07:40
Calcium 8.6 mg/dl (8.4-10.2) 01/24/24 07:40
Medications
-
Medications:
Generic Name Dose Route Start Last Admin
Trade Name Freq PRN Reason Stop Dose Admin
Acetaminophen 650 mg 01/22/24 21:44
Acetaminophen 325 Mg Tablet PO 02/19/24 21:43
Q4HPRN PRN
mild pain
Aripiprazole 2 mg 01/23/24 08:00 01/24/24 08:33
Aripiprazole 2 Mg Tablet PO 02/20/24 07:59 2 mg
DAILY JORI Administration
Bisacodyl 10 mg 01/23/24 08:00 01/24/24 08:32
Bisacodyl 10 Mg Rectal Suppository RECTAL 02/20/24 07:59 10 mg
DAILY JORI Administration
Divalproex Sodium 125 mg 01/23/24 08:00 01/24/24 08:32
Divalproex Sodium 125 Mg Sprinkle Capsule PO 02/20/24 07:59 125 mg
BID JORI Administration
Docusate Sodium 100 mg 01/23/24 08:00 01/24/24 08:32
Docusate Sodium 100 Mg Capsule PO 02/20/24 07:59 100 mg
BID JORI Administration
Enoxaparin Sodium 40 mg 01/23/24 18:00 01/23/24 15:30
Enoxaparin Sodium 40 Mg/0.4 Ml Syringe SC 02/20/24 17:59 40 mg
QPM JORI Administration
Folic Acid 1 mg 01/23/24 08:00 01/24/24 08:32
Folic Acid 1 Mg Tablet PO 02/20/24 07:59 1 mg
DAILY JORI Administration
Piperacillin Sod/Tazobactam Sod 3.375 gram in 50 mls @ 100 mls/hr 01/23/24 02:00 01/24/24 08:33
Zosyn IV 50 mls
Q6H JORI Administration
Mirtazapine 15 mg 01/22/24 23:00 01/23/24 21:02
Mirtazapine 15 Mg Regular Release Tablet PO 02/19/24 22:59 15 mg
HS JORI Administration
Morphine Sulfate 2 mg 01/23/24 08:37
Morphine 2 Mg/Ml Syringe IV 02/06/24 08:36
Q4HPRN PRN
severe pain
Ondansetron HCl 4 mg 01/22/24 23:36
Ondansetron 4 Mg/2 Ml Vial IV 02/19/24 23:35
Q6HPRN PRN
nausea and vomiting
Oxycodone HCl 5 mg 01/23/24 08:37
Oxycodone 5 Mg Regular Release Tablet PO 02/06/24 08:36
Q4HPRN PRN
mod pain
Polyethylene Glycol 17 grams 01/23/24 08:00 01/24/24 08:33
Polyethylene Glycol Powder 17 Grams Packet PO 02/20/24 07:59 17 grams
DAILY JORI Administration
Sennosides 17.2 mg 01/22/24 23:36 01/23/24 21:02
Sennosides (Senokot) 8.6 Mg Tablet PO 02/19/24 23:35 17.2 mg
HS JORI Administration
Sodium Chloride 0 flush 01/22/24 22:00
Sodium Chloride 0.9% (Flush) Syringe IV 02/19/24 21:59
PER PROTOCOL JORI
Sodium Chloride 0 flush 01/22/24 22:00
Sodium Chloride 0.9% (Flush) Syringe IV 02/19/24 21:59
PER PROTOCOL JORI
Thiamine HCl 100 mg 01/23/24 08:00 01/24/24 08:32
Thiamine 100 Mg Tablet PO 02/20/24 07:59 100 mg
DAILY JORI Administration
Home Medications
-
Home Medications
amoxicillin 500 mg-potassium clavulanate 125 mg tablet 1 tab PO BID 01/22/24
aripiprazole 2 mg tablet 2 mg PO DAILY 01/22/24
divalproex 125 mg capsule,delayed release sprinkle 125 mg PO BID 01/22/24
folic acid 1 mg tablet 1 mg PO DAILY 01/22/24
guaifenesin 100 mg/5 mL oral liquid 200 mg PO Q4HPRN PRN cough 01/22/24
loperamide 2 mg capsule (Anti-Diarrheal (loperamide)) 4 mg PO Q6HPRN PRN diarrhea 01/22/24
lorazepam 0.5 mg tablet 0.5 mg PO Q6HPRN PRN anxiety 01/22/24
mirtazapine 7.5 mg tablet 15 mg PO HS 01/22/24
thiamine HCl (vitamin B1) 100 mg tablet 100 mg PO DAILY 01/22/24
--- NOTE | 2024-01-24 11:37 | PTOTSP ---
SPEECH THERAPY SWALLOW EVALUATION:
Patient exhibits clinical signs of oropharyngeal dysphagia, likely acutely related recent scrotal wound surgery and subsequent post-op seizure, with chronic component related to dementia. Patient remains at HIGH RISK for aspiration and related
complications at this time given confusion and weakness. Exhibiting signs of aspiration with thin liquids at this time. Recommend temporary NPO except for necessary medications crushed in applesauce when awake/alert at this time; Non-oral
nutrition/hydration. ST to follow, re-assess pt in 24 hours, determine readiness for additional p.o. trials/textures and/or initiation of oral diet, and provide continued diagnostic swallow therapy as appropriate. Discussed with RN and MD.
RECOMMEND:
1) temporary NPO
2) necessary medications crushed in applesauce when awake/alert
3) Non-oral nutrition/hydration
4) ST to follow, re-assess pt in 24 hours
--- NOTE | 2024-01-24 12:40 | W.PN.HOSP.TC ---
Today's Communication/Plan
-
IVF
NPO
IV abx
daily speech
urology eval
Assessment / Plan
Assessment / Plan
General: Other (88y M in no acute distress.)
HEENT: Moist mucous membranes and PERRLA
Respiratory: Clear; No Wheezes, Rales or Rhonchi
Cardiac: S1/S2 and Regular Rhythm; No Murmur
GI: Soft, Non Tender, Non Distended and Normal Bowel Sounds
Genito-urinary: owusu, Groin
Musculoskeletal: No Clubbing, No Cyanosis and No Edema
Neuro: Awake and Alert
Psych: No Anxious or Depressed
A/P: Patient is an 88y M with PMH significant for dementia who presents to ED for evaluation of L scrotal wound after recent surgery.
Left Inguinal Hernia
Scrotal Wound Dehiscence
- s/p open inguinal hernia repair with mesh and scrotal wound exploration / packing.
- Colon in the hernia sac was viable.
- Post-op pain control, abx, etc.
- Local care for scrotal wound / packing / etc.
- Follow for any new / worsening symptoms.
- Diet advancement per surgery. okay for regular diet once passes speech
Dysphagia ? due to mentation
-speech recs npo but okay for meds.
-IVF started.
-daily speech eval
Urinary retention
-start flomax
-owusu catheter placement
-urology has been consulted
Constipation
-started on bowel regimen
Possible UTI
- Patient started on Augmentin at nursing facility on 01/15 for suspected UTI.
- UA in the ED with bacteria and nitrites but no WBC (? due to pre-existing abx).
- Continue IV abx for now pending culture data.
- Bladder scan protocol and straight cath if needed.
Senile Dementia with Behavioral Disturbance
- Stable. Patient not currently agitated, anxious, etc.
- Continue usual home medication regimen.
-
PTSD
-Monitor mentation closely. Episode of agitation in the hospital per nephew.
DVT Prophylaxis: Lovenox
Code Status: DNR
Updated patient POA/nephew Sean over the phone in details on 01/22. CODE STATUS was confirmed DNR/DNI.
Anticipated Discharge: > 48 hours
Subjective/Interval History
-
Date of Service: January 24, 2024
urinary retention and requiring owusu
agitated and requiring restraints
Objective Data
-
Labs:
Laboratory Results
01/24/24
07:40
WBC 9.1
Hgb 13.8
Hct 40.6
Plt Count 243
Sodium 141
Potassium 3.9
Chloride 102
Carbon Dioxide 27
BUN 17
Creatinine 0.8
Glucose 105 H
Calcium 8.6
Vital Signs:
Vital Signs
Temp Pulse Resp BP Pulse Ox
98.2 F 72 18 124/70 99
01/24/24 07:02 01/24/24 07:02 01/24/24 07:02 01/24/24 07:02 01/24/24 08:35
I&O
01/23/24 01/24/24 01/25/24
06:59 06:59 06:59
Intake Total 1200 / 1200
Output Total 1000 / 1000
Balance 200 / 200
Data Reviewed
-
Total Time Spent with Patient (in minutes): 52
[2024-01-24] MEDS: NSS 1000 IV (13:01)
[2024-01-24] MEDS: FLOMAX 0.4 MG PO (13:01)
--- NOTE | 2024-01-24 13:46 | CONS.URO ---
Consultation
-
Performing Provider: Tuliofer
Reason for Consultation: Scrotal wound, urinary retention
Medical History
History of Present Illness
88M with dementia and recent scrotal surgery who presents to ED for evaluation of open L scrotal wound.
Patient reportedly underwent surgery at [facility] on 01/16/24. The surgery was for suspected hydrocele; however, once scrotal sac was opened it was noted that the contents were bowel / hernia and not hydrocele. No further intervention was apparently
performed at that time and wound was closed.
Patient was discharged and 1 week later noted to have an open wound of the L scrotum. He was sent to the ED for further evaluation and treatment.
CT showed L inguinal hernia containing large loop of L colon
Patient was evaluated by Surgery and taken to the OR for L inguinal hernia repair and scrotum wound exploration
The hernia was repaired and scrotal wound dressed
In post op period he was found to have urinary retention requiring straight cath several times
Owusu was placed and urology consulted
Past Medical History
Past Medical History: None (as above) and Other (per H&P)
Past Surgical History: Urological and Other (per H&P)
Social History
Tobacco: Non-smoker
Living: Snf
Family History
Family History: Unable to Obtain
Allergies/Home Medications
Allergies
Allergy/AdvReac Type Severity Reaction Status Date / Time
No Known Allergies Allergy Unverified 01/22/24 13:39
Home Medications
�Medication �Instructions �Recorded �Confirmed �Type
amoxicillin 500 mg-potassium 1 tab PO BID 01/22/24 01/22/24 History
clavulanate 125 mg tablet
aripiprazole 2 mg tablet 2 mg PO DAILY 01/22/24 01/22/24 History
divalproex 125 mg capsule,delayed 125 mg PO BID 01/22/24 01/22/24 History
release sprinkle
folic acid 1 mg tablet 1 mg PO DAILY 01/22/24 01/22/24 History
guaifenesin 100 mg/5 mL oral liquid 200 mg PO Q4HPRN PRN cough 01/22/24 01/22/24 History
loperamide 2 mg capsule 4 mg PO Q6HPRN PRN diarrhea 01/22/24 01/22/24 History
(Anti-Diarrheal (loperamide))
lorazepam 0.5 mg tablet 0.5 mg PO Q6HPRN PRN anxiety 01/22/24 01/22/24 History
mirtazapine 7.5 mg tablet 15 mg PO HS 01/22/24 01/22/24 History
thiamine HCl (vitamin B1) 100 mg 100 mg PO DAILY 01/22/24 01/22/24 History
tablet
Physical Exam
Vital Signs
Vital Signs
Temp Pulse Resp BP Pulse Ox
98.2 F 72 18 124/70 99
01/24/24 07:02 01/24/24 07:02 01/24/24 07:02 01/24/24 07:02 01/24/24 08:35
Lab / Testing Results
Laboratory Results
01/24/24 07:40
01/24/24 07:40
Physical Exam
General: Well Developed, Well Nourished and No Apparent Distress
GI: Soft and Non Tender
Genito-urinary: No Costovertebral Tend and Other (open scrotal wound without cellulitis, Layer of dartos fascia appears closed)
Psych: Apparent Dementia
Assessment / Plan
-
88M with open scrotal wound 1 week after aborted hydrocele surgery at [facility], which was stopped then the scrotal swelling was found to actually be a massive inguinal hernia
Post op urinary retention
- Scrotal wound appears clean without cellulitis. Layer of dartos fascia is closed over the wound. Would recommend only local wound care with daily dressing changes to heal with granulation tissue
- Given dementia and tendency to pull at tubes and lines, chronic owusu catheter is not likely to be a good correction management option. Maintain owusu until otherwise stable and ready for discharge, then remove owusu early AM on day of expected
discharge. If still retaining with >300cc PVR, he will need CIC on chronic basis
[2024-01-24 15:51] VITALS: BP 120/54
[2024-01-24] MEDS: LOVENOX 40 MG SC (16:01)
[2024-01-24 18:29] VITALS: BMI 19.4
[2024-01-24] MEDS: SENOKOT 17.2 MG PO (21:06)
[2024-01-24] MEDS: REMERON 15 MG PO (21:06)
[2024-01-24] MEDS: COLACE PO (21:07)
[2024-01-24 23:10] VITALS: BP 123/59
[2024-01-25] MEDS: NSS 1000 IV ×2 (01:09→18:39)
[2024-01-25] MEDS: ZOSYN 50 IV ×4 (01:09→20:00)
[2024-01-25 06:00] VITALS: BMI 19.5
[2024-01-25 07:25] VITALS: BP 138/73
[2024-01-25 08:34] LABS: % Basophils 0.3 % (0-2); % Immature Granulocytes 0.5 % (0-0.5); % Lymphocytes 7.7 % (20.5-51.1); % Monocytes 10.6 % (1.7-9.3); % Neutrophils 78.9 % (42.2-75.2); Absolute Eosinophils 0.1 10^3/uL (0-0.7); Absolute Lymphocytes 0.5 10^3/uL (1.2-3.4); Absolute Monocytes 0.7 10^3/uL (0.1-0.6); Absolute Neutrophils 5.2 10^3/uL (1.4-6.5); Hematocrit 37.3 % (39.0-52.0); Hemoglobin 12.4 g/dL (13.0-18.0); Mean Corp Hgb Conc. 33.2 g/dL (33.0-37.0); Mean Corpuscular Hgb 32.7 pg (27.0-31.0); Mean Corpuscular Volume 98.4 fL (80.0-94.0); Mean Platelet Volume 9.5 fL (7.4-10.4); Nucleated Red Blood Cells % 0 % (-); Platelet Count 219 10^3/uL (130-400); Red Blood Cell Count 3.79 10^6/uL (4.70-6.10); Red Cell Dist. Width 13.6 % (11.5-14.5); White Blood Cell Count 6.6 10^3/uL (4.8-10.8)
[2024-01-25 09:08] LABS: Blood Urea Nitrogen 21 mg/dl (9-20); Calcium 8.3 mg/dl (8.4-10.2); Carbon Dioxide 28 mmol/L (22-30); Chloride 103 mmol/L (98-107); Estimated Creatinine Clearance 70 ml/min; Glucose 92 mg/dl (70-99); Potassium 3.6 mmol/L (3.5-5.1); Sodium 140 mmol/L (135-145); eGFR > 60.00
[2024-01-25] MEDS: COLACE PO (10:00)
[2024-01-25] MEDS: MIRALAX PO (10:58)
--- NOTE | 2024-01-25 11:00 | W.PN.URO.CBU ---
Today's Communication / Plan
-
kep owusu
Assessment / Plan
-
acute urinary retention keep owusu probable outpatient trial of void
Diagnosis
-
Date of Service: January 25, 2024
-
Patient Diagnosis:urinary retention post op emerget hernia repair and failed scrotal exploration a day earlir
Post Op Day:
Subjective
-
trouble voiding
Objective
-
Vital Signs
Temp Pulse Resp BP Pulse Ox
98.1 F 67 18 138/73 100
01/25/24 07:25 01/25/24 07:25 01/25/24 07:25 01/25/24 07:25 01/25/24 07:25
Intake and Output
01/24/24 01/25/24 01/26/24
06:59 06:59 06:59
Intake Total 1200 / 1200 1320 / 1320
Output Total 1000 / 1000 1200 / 1200
Balance 200 / 200 120 / 120
Intake:
Oral fluids 360 / 360
IV fluids (Total) 1200 / 1200 960 / 960
IV piggybacks 0 / 0
Output:
Urine, Owusu 400 / 400 1000 / 1000
Urine, Voided 100 / 100 200 / 200
Straight cath output 500 / 500
Other:
Number of approximated SMALL 1
amounts of urine
How many times incontinent 1
SMALL amount urine
How many times incontinent 1
SATURATED amount urine
Laboratory Results
01/25/24 07:39
01/25/24 07:39
Review of Systems
-
: Difficulty Voiding
Physical Exam
-
General - well developed, well nourished, no acute distress
Chest - clear bilaterally
Abdomen - soft, non-tender, positive bowel sounds, no CVAT, no incisional pain or distention
Genitalia - normal
Rectal - normal
Skin - warm & dry with no rash
Neuro - AOx3, no motor deficits
Extremities - no clubbing, no cyanosis, no edema
Incision - clean, dry
Dressing - clean, dry, intact
Care Review
Data Reviewed
Discussed with: Hospitalist and Other (surgery)
[2024-01-25] MEDS: VITAMIN B1 PO (11:02)
[2024-01-25] MEDS: FOLVITE PO (11:02)
[2024-01-25] MEDS: ABILIFY 2 MG PO (12:00)
[2024-01-25] MEDS: DEPAKOTE SPRINKLE 125 MG PO ×2 (12:00→21:32)
[2024-01-25] MEDS: FLOMAX 0.4 MG PO (12:00)
[2024-01-25] MEDS: DULCOLAX 10 MG RECTAL (12:00)
--- NOTE | 2024-01-25 12:01 | W.PN.HOSP.TC ---
Addendum entered and electronically signed by Tripp Stacy MD 01/25/24 14:35:
updated patient AMINA Estrada and his over the phone in details.
Original Note:
Today's Communication/Plan
-
NPO
IVF
IV abx
owusu
bowel regimen
Assessment / Plan
Assessment / Plan
General: agitated, in restraints
HEENT: Moist mucous membranes and PERRLA
Respiratory: Clear; No Wheezes, Rales or Rhonchi
Cardiac: S1/S2 and Regular Rhythm; No Murmur
GI: Soft, Non Tender, Non Distended and Normal Bowel Sounds
Genito-urinary: owusu,
Musculoskeletal: No Clubbing, No Cyanosis and No Edema
Neuro: Awake and Alert
Psych: No Anxious or Depressed
A/P: Patient is an 88y M with PMH significant for dementia who presents to ED for evaluation of L scrotal wound after recent surgery.
Left Inguinal Hernia
Scrotal Wound Dehiscence
- s/p open inguinal hernia repair with mesh and scrotal wound exploration / packing.
- Colon in the hernia sac was viable.
- Post-op pain control, abx, etc.
- Local care for scrotal wound / packing / etc.
- Follow for any new / worsening symptoms.
- Diet advancement per surgery. okay for regular diet once passes speech
Dysphagia
-speech recs npo but okay for meds.
-IVF started.
-daily speech eval
Urinary retention
-started flomax
-owusu catheter placement
-urology has been consulted
Constipation
-started on bowel regimen
Possible UTI
- Patient started on Augmentin at nursing facility on 01/15 for suspected UTI.
- UA in the ED with bacteria and nitrites but no WBC (? due to pre-existing abx).
- Continue IV abx for now pending culture data.
- Bladder scan protocol and straight cath if needed.
Senile Dementia with Behavioral Disturbance
- Stable. Patient not currently agitated, anxious, etc.
- Continue usual home medication regimen.
-
PTSD
-Monitor mentation closely. Episode of agitation in the hospital per nephew.
DVT Prophylaxis: Lovenox
Code Status: DNR
Updated patient POA/nephew Sean over the phone in details on 01/22. CODE STATUS was confirmed DNR/DNI.
Anticipated Discharge: > 48 hours
Subjective/Interval History
-
Date of Service: January 25, 2024
remains agitated
failed shallow eval
Objective Data
-
Labs:
Laboratory Results
01/25/24
07:39
WBC 6.6
Hgb 12.4 L
Hct 37.3 L
Plt Count 219
Sodium 140
Potassium 3.6
Chloride 103
Carbon Dioxide 28
BUN 21 H
Creatinine 0.7
Glucose 92
Calcium 8.3 L
Vital Signs:
Vital Signs
Temp Pulse Resp BP Pulse Ox
98.1 F 67 18 138/73 100
01/25/24 07:25 01/25/24 07:25 01/25/24 07:25 01/25/24 07:25 01/25/24 07:25
I&O
01/24/24 01/25/24 01/26/24
06:59 06:59 06:59
Intake Total 1200 / 1200 1320 / 1320
Output Total 1000 / 1000 1200 / 1200
Balance 200 / 200 120 / 120
Data Reviewed
-
Total Time Spent with Patient (in minutes): 51
--- NOTE | 2024-01-25 13:51 | W.PN.GS2 ---
Addendum entered and electronically signed by Abran Mena MD 01/25/24 13:57:
Patient seen and examined with surgical MOVING CONSULTANT. Agree with documented progress note
Patient more alert today and oriented to self
Denies pain
Asking for water because he is thirsty
AFVSS
ABD: Left inguinal incision with clean glue dressing
A/P: POD #3 status post open left inguinal hernia repair with mesh after scrotal dehiscence from hydrocelectomy performed at outside hospital
Regular diet as tolerated when cleared from speech therapy standpoint
Will follow peripherally, call if any postoperative general surgical concerns
Original Note:
Today's Communication / Plan
-
ADAT
Assessment / Plan
-
Assessment: 88 y/o male POD#3 s/p Open LEFT inguinal hernia repair with mesh, scrotal wound exploration
AFVSS
post op urinary retention, owusu placed: urology following
wounds and surgical site looks well
Plan: continue local wound care
continue bowel regimen
abs as per primary team
ok to advance to regular diet from surgical standpoint once cleared by HAND II BLOCKER for PO intake
Subjective Data
-
Date of Service: January 25, 2024
Patient seen and examined at bedside with Dr. Mnea. More alert today but still confused. Asking for water. Denies pain.
Objective Data
-
Intake and Output
01/24/24 01/25/24 01/26/24
06:59 06:59 06:59
Intake Total 1200 / 1200 1320 / 1320
Output Total 1000 / 1000 1200 / 1200
Balance 200 / 200 120 / 120
Intake:
Oral fluids 360 / 360
IV fluids (Total) 1200 / 1200 960 / 960
IV piggybacks 0 / 0
Output:
Urine, Owusu 400 / 400 1000 / 1000
Urine, Voided 100 / 100 200 / 200
Straight cath output 500 / 500
Other:
Number of approximated SMALL 1
amounts of urine
How many times incontinent 1
SMALL amount urine
How many times incontinent 1
SATURATED amount urine
Vital Signs
Temp Pulse Resp BP Pulse Ox
98.1 F 67 18 138/73 100
01/25/24 07:25 01/25/24 07:25 01/25/24 07:25 01/25/24 07:25 01/25/24 07:25
Lab Results
01/25/24 07:39
01/25/24 07:39
Calcium 8.3 mg/dl (8.4-10.2) L 01/25/24 07:39
Magnesium 2.1 mg/dl (1.6-2.3) 01/23/24 01:30
Total Bilirubin 0.8 mg/dl (0.2-1.3) 01/22/24 14:00
AST 32 U/L (17-59) 01/22/24 14:00
ALT 19 U/L (0-50) 01/22/24 14:00
Alkaline Phosphatase 100 U/L (38-126) 01/22/24 14:00
Total Protein 6.1 g/dl (6.3-8.2) L 01/22/24 14:00
Albumin 3.5 g/dl (3.5-5.0) 01/22/24 14:00
Physical Exam
-
NAD alert and oriented only to self, restrained
ABD soft, nt, nd
left inguinal incision with glue dressing
left scrotum with open wound
owusu with clear, yellow urine
[2024-01-25 15:23] VITALS: BP 122/62
[2024-01-25] MEDS: LOVENOX 40 MG SC (18:34)
[2024-01-25] MEDS: REMERON 15 MG PO (21:29)
[2024-01-25 23:00] VITALS: BP 124/61
[2024-01-26] MEDS: ZOSYN 50 IV ×4 (02:01→20:14)
[2024-01-26 07:00] VITALS: BP 127/66
[2024-01-26 07:58] VITALS: BP 127/66
[2024-01-26] MEDS: DULCOLAX 10 MG RECTAL (08:00)
[2024-01-26] MEDS: DEPAKOTE SPRINKLE 125 MG PO (08:00)
[2024-01-26] MEDS: FLOMAX 0.4 MG PO (08:00)
[2024-01-26] MEDS: ABILIFY 2 MG PO (08:00)
--- NOTE | 2024-01-26 10:12 | W.PN.HOSP.TC ---
Today's Communication/Plan
-
daily speech eval
IVF
Monitor UOP
Dressing change
Assessment / Plan
Assessment / Plan
General: agitated, in restraints
HEENT: Moist mucous membranes and PERRLA
Respiratory: Clear; No Wheezes, Rales or Rhonchi
Cardiac: S1/S2 and Regular Rhythm; No Murmur
GI: Soft, Non Tender, Non Distended and Normal Bowel Sounds
Genito-urinary: owusu,
Musculoskeletal: No Clubbing, No Cyanosis and No Edema
Neuro: Awake and Alert
Psych: No Anxious or Depressed
A/P: Patient is an 88y M with PMH significant for dementia who presents to ED for evaluation of L scrotal wound after recent surgery.
Left Inguinal Hernia
Scrotal Wound Dehiscence
- s/p open inguinal hernia repair with mesh and scrotal wound exploration / packing.
- Colon in the hernia sac was viable.
- Post-op pain control, abx, etc.
- Local care for scrotal wound / packing / etc.
- Follow for any new / worsening symptoms.
- Can probably stop antbiotics in 24-48h.
- Diet advancement per surgery. okay for regular diet once passes speech
Dysphagia
-speech recs npo but okay for meds.
-IVF continued while remains NPO.
-daily speech eval
Urinary retention
-started flomax
-owusu catheter placement
-urology has been consulted
Constipation
-started on bowel regimen
Senile Dementia with Behavioral Disturbance
- Stable. Patient not currently agitated, anxious, etc.
- Continue usual home medication regimen.
-
PTSD
-Monitor mentation closely. Episode of agitation in the hospital per nephew.
DVT Prophylaxis: Lovenox
Code Status: DNR
Updated patient POA/nephew Sean over the phone in details on 01/22. CODE STATUS was confirmed DNR/DNI.
Anticipated Discharge: > 48 hours
Subjective/Interval History
-
Date of Service: January 26, 2024
remains npo
ivf continued
Objective Data
-
Vital Signs:
Vital Signs
Temp Pulse Resp BP Pulse Ox
97.6 F 81 20 127/66 98
01/26/24 07:00 01/26/24 07:00 01/26/24 07:00 01/26/24 07:00 01/26/24 07:00
I&O
01/25/24 01/26/24 01/27/24
06:59 06:59 06:59
Intake Total 1320 / 1320 0 / 2060
Output Total 1300 / 1300 440 / 440
Balance 1620 / 1620
Data Reviewed
-
Total Time Spent with Patient (in minutes): 52
[2024-01-26] MEDS: ROXICODONE 5 MG PO (10:14)
[2024-01-26] MEDS: MIRALAX PO (10:16)
--- NOTE | 2024-01-26 10:32 | W.PN.URO.CBU ---
Today's Communication / Plan
-
NO CHANGES PROABLE D/C WITH OWUSU TO NURSING FACILTY
Assessment / Plan
-
acute urinary retention keep owusu probable outpatient trial of void
Diagnosis
-
Date of Service: January 26, 2024
-
Patient Diagnosis:
Post Op Day:
Patient Diagnosis:urinary retention post op emerget hernia repair and failed scrotal exploration a day earlir
Post Op Day:
Subjective
-
FEEELING BETTER
Objective
-
Vital Signs
Temp Pulse Resp BP Pulse Ox
97.6 F 81 20 127/66 98
01/26/24 07:00 01/26/24 07:00 01/26/24 07:00 01/26/24 07:00 01/26/24 07:00
Intake and Output
01/25/24 01/26/24 01/27/24
06:59 06:59 06:59
Intake Total 1320 / 1320 2060 / 2060
Output Total 1300 / 1300 440 / 440
Balance 20 / 20 1620 / 1620
Intake:
Oral fluids 360 / 360
IV fluids (Total) 960 / 960 1860 / 1860
IV piggybacks 200 / 200
Output:
Urine, Owusu 1100 / 1100
Urine, Voided 200 / 200 440 / 440
Laboratory Results
01/25/24 07:39
01/25/24 07:39
Review of Systems
-
: Difficulty Voiding
Physical Exam
-
General - well developed, well nourished, no acute distress
Chest - clear bilaterally
Abdomen - soft, non-tender, positive bowel sounds, no CVAT, no incisional pain or distention
Genitalia - normal
Rectal - normal
Skin - warm & dry with no rash
Neuro - AOx3, no motor deficits
Extremities - no clubbing, no cyanosis, no edema
Incision - clean, dry
Dressing - clean, dry, intact
Care Review
Data Reviewed
Discussed with: Other (SURGERY)
[2024-01-26] MEDS: NSS 1000 IV (10:34)
[2024-01-26 14:56] VITALS: BP 137/74
[2024-01-26] MEDS: LOVENOX 40 MG SC (17:38)
[2024-01-26] MEDS: DEPAKOTE SPRINKLE PO ×2 (20:16→23:26)
[2024-01-26 23:05] VITALS: BP 127/59
[2024-01-26] MEDS: REMERON PO ×2 (23:11→23:26)
[2024-01-27] MEDS: ZOSYN 50 IV ×4 (04:05→21:24)
[2024-01-27 06:00] VITALS: BMI 19.5
[2024-01-27 07:00] VITALS: BP 134/58
[2024-01-27] MEDS: NSS IV ×2 (08:38→18:09)
[2024-01-27] MEDS: NSS 1000 IV (08:38)
[2024-01-27 09:12] LABS: % Basophils 0.7 % (0-2); % Eosinophils 3.8 % (0-6); % Immature Granulocytes 0.5 % (0-0.5); % Lymphocytes 8.2 % (20.5-51.1); % Neutrophils 79.8 % (42.2-75.2); Absolute Eosinophils 0.2 10^3/uL (0-0.7); Absolute Lymphocytes 0.5 10^3/uL (1.2-3.4); Absolute Monocytes 0.4 10^3/uL (0.1-0.6); Absolute Neutrophils 4.6 10^3/uL (1.4-6.5); Hematocrit 35.5 % (39.0-52.0); Hemoglobin 11.9 g/dL (13.0-18.0); Mean Corp Hgb Conc. 33.5 g/dL (33.0-37.0); Mean Corpuscular Hgb 31.6 pg (27.0-31.0); Mean Corpuscular Volume 94.2 fL (80.0-94.0); Nucleated Red Blood Cells % 0 % (-); Platelet Count 258 10^3/uL (130-400); Red Blood Cell Count 3.77 10^6/uL (4.70-6.10); Red Cell Dist. Width 13.2 % (11.5-14.5); White Blood Cell Count 5.8 10^3/uL (4.8-10.8)
--- NOTE | 2024-01-27 09:31 | W.PN.HOSP.TC ---
Today's Communication/Plan
-
dc planning
Increase Abilify to remove restraints
Assessment / Plan
Assessment / Plan
Physical exam:
General: less agitated, in restraints
HEENT: Moist mucous membranes and PERRLA
Respiratory: Clear; No Wheezes, Rales or Rhonchi
Cardiac: S1/S2 and Regular Rhythm; No Murmur
GI: Soft, Non Tender, Non Distended and Normal Bowel Sounds
Genito-urinary: owusu,
Musculoskeletal: No Clubbing, No Cyanosis and No Edema
Neuro: Awake and Alert
Psych: No Anxious or Depressed
A/P: Patient is an 88y M with PMH significant for dementia who presents to ED for evaluation of L scrotal wound after recent surgery.
Left Inguinal Hernia
Scrotal Wound Dehiscence
- s/p open inguinal hernia repair with mesh and scrotal wound exploration / packing.
- Colon in the hernia sac was viable.
- Post-op pain control, abx, etc.
- Local care for scrotal wound / packing / etc.
- Follow for any new / worsening symptoms.
- Can probably stop antbiotics in 24-48h.
- Diet advanced per surgery. okay for regular diet once passes speech
Dysphagia
-speech recs npo but okay for meds.
-IVF continued while remains NPO.
-daily speech eval
Acute Urinary retention
-started Flomax
-Owusu catheter placement
-urology has been consulted , keep Owusu upon dc
Constipation
-started on bowel regimen
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
- He is confused with agitation
On restraints
-increase Abilify to hope no need restraints
- Continue usual home medication regimen.
-
PTSD
-Monitor mentation closely. Episode of agitation in the hospital per nephew.
DVT Prophylaxis: Lovenox
Code Status: DNR
Updated patient POA/nephew Sean over the phone in details on 01/22. CODE STATUS was confirmed DNR/DNI.
Total time spent to see the patient on the floor, examine the patient, review data and lab results, discuss treatment plan with patient, nursing staff around 55 minutes
Anticipated Discharge: 24 - 48 hours
Subjective/Interval History
-
Date of Service: January 27, 2024
Pt denies pain in chest or abdomen
he has bilateral wrist restraints
Objective Data
-
Labs:
Laboratory Results
01/27/24
08:26
WBC 5.8
Hgb 11.9 L
Hct 35.5 L
Plt Count 258
Sodium Pending
Potassium Pending
Chloride Pending
Carbon Dioxide Pending
BUN Pending
Creatinine Pending
Glucose Pending
Calcium Pending
Vital Signs:
Vital Signs
Temp Pulse Resp BP Pulse Ox
97.6 F 70 16 134/58 99
01/27/24 07:00 01/27/24 07:00 01/27/24 07:00 01/27/24 07:00 01/27/24 07:00
I&O
01/26/24 01/27/24 01/28/24
06:59 06:59 06:59
Intake Total 2059
Output Total 440 / 440 875 / 875
Balance 1620 / 1620 1165 / 1165
[2024-01-27 09:55] LABS: Blood Urea Nitrogen 20 mg/dl (9-20); Calcium 7.7 mg/dl (8.4-10.2); Carbon Dioxide 22 mmol/L (22-30); Chloride 105 mmol/L (98-107); Estimated Creatinine Clearance 81 ml/min; Glucose 68 mg/dl (70-99); Potassium 4.1 mmol/L (3.5-5.1); Sodium 139 mmol/L (135-145); eGFR > 60.00
[2024-01-27] MEDS: MIRALAX PO (10:33)
[2024-01-27] MEDS: ABILIFY 2 MG PO ×2 (10:46)
[2024-01-27] MEDS: FLOMAX 0.4 MG PO (10:46)
[2024-01-27] MEDS: DEPAKOTE SPRINKLE 125 MG PO ×2 (10:47→21:24)
--- NOTE | 2024-01-27 12:35 | PN.CDI ---
Addendum entered and electronically signed by Holly Carpio MD 01/27/24 12:52:
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
Original Note:
CDI
- -
CDI:
Physician Documentation Request
Admit Date: 01/22/24 22:06
Dear Doctor Shirin,
Please review the following and provide your response in the progress notes.
Clinical Indicators:
Pt admitted with Left Inguinal Hernia Scrotal Wound Dehiscence repair on
Patient care note 01/22 @ 0120, ' A Rapid Response was called on this patient, ...Pt nonverbal, not responding to stimuli upon arrival from PACU. Unable to complete NIH...'
Patient care note 01/22 0840, ' 01/22- Patient is impulsive; repeatedly removing telemetry and dipens. He tugs at his IV... He made 1 attempt to get out of bed on his own. Bed Alarm intact. Requested MedSitter...'
Patient care note 01/23 @ 0143,' patient was trying to pull at and remove owusu tubing. B/L soft wrist restraints and hand mitts applied....'
Neurology consult and notes, ' Chronic neurodegenerative encephalopathy....'
Progress notes 01/25 &01/26, 'General: agitated, in restraints ..'
Progress note 01/26, ' Increase Abilify to remove restraints ...General: less agitated, in restraints ...'
Based on the above, could you clarify in the Progress Notes and Discharge Summary which, if any of the following, is the most likely etiology of the confusion/altered mental status.
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
Due to Chronic neurodegenerative encephalopathy only
Other ( please specify)
Use of terms such as suspected, likely, concern for, or probable (associated with a specific diagnosis that is being evaluated, monitored, or treated as if it exists) are acceptable and can be coded in the inpatient setting, when documented at the
time of discharge.
Thank you,
Bety Mercer RN
CDI Specialist
[place] [facility]
Please use your independent medical judgment in providing your response.
--- NOTE | 2024-01-27 13:38 | CM ---
Chart reviewed and patient to return to [address] when stable, update provided to Nneka WHITESIDE.
[facility]
[phone]

PCP: Dr. Ta
Nneka WIHTESIDE at [facility]
[phone]

Plan; Patient to return to [facility] with visiting nurses when stable.
[2024-01-27 15:32] VITALS: BP 121/53
[2024-01-27] MEDS: DULCOLAX 10 MG RECTAL (15:32)
--- NOTE | 2024-01-27 16:58 | W.PN.URO.CBU ---
Today's Communication / Plan
-
keep owusu plan per hospitalist
Assessment / Plan
-
acute urinary retention keep owusu probable outpatient trial of void
Diagnosis
-
Date of Service: January 27, 2024
-
Patient Diagnosis:
Post Op Day:
Patient Diagnosis:
Post Op Day:
Patient Diagnosis:urinary retention post op emerget hernia repair and failed scrotal exploration a day earlir
Post Op Day:
Subjective
-
no voiding
Objective
-
Vital Signs
Temp Pulse Resp BP Pulse Ox
98 F 64 18 121/53 100
01/27/24 15:32 01/27/24 15:32 01/27/24 15:32 01/27/24 15:32 01/27/24 15:32
Intake and Output
01/26/24 01/27/24 01/28/24
06:59 06:59 06:59
Intake Total 2059 / 2059 2039 / 2039
Output Total 440 / 440 875 / 875
Balance 1620 / 1620 1165 / 1165
Intake:
IV fluids (Total) 1860 / 1860 1840 / 1840
IV piggybacks 200 / 200 200 / 200
Output:
Urine, Owusu 500 / 500
Urine, Voided 440 / 440 375 / 375
Laboratory Results
01/27/24 08:26
01/27/24 08:26
Review of Systems
-
: Difficulty Voiding
Physical Exam
-
General - well developed, well nourished, no acute distress
Chest - clear bilaterally
Abdomen - soft, non-tender, positive bowel sounds, no CVAT, no incisional pain or distention
Genitalia - normal
Rectal - normal
Skin - warm & dry with no rash
Neuro - AOx3, no motor deficits
Extremities - no clubbing, no cyanosis, no edema
Incision - clean, dry
Dressing - clean, dry, intact
Care Review
Data Reviewed
Discussed with: Hospitalist
[2024-01-27] MEDS: ATIVAN 0.5 MG IV (18:08)
[2024-01-27] MEDS: NSS (PRESERVATIVE FREE) 0.25 ML IV (18:09)
[2024-01-27] MEDS: LOVENOX SC (18:10)
--- NOTE | 2024-01-27 18:30 | PTCARENOTE ---
1730 Dr. Carpio aware trialing off wrist restraints, bilateral hand mitts remain intact to prevent pt pulling out owusu catheter. Noted pt starting to become aggitated and restless, starting to yell out. Dr. Carpio notified and ordered Ativan 0.5 mg
IV stat, given as order, pt starting to calm, continue to monitor pt closely.
[2024-01-27] MEDS: REMERON 15 MG PO (21:24)
[2024-01-27 23:01] VITALS: BP 125/55
[2024-01-28] MEDS: NSS 1000 IV ×2 (01:50→15:40)
[2024-01-28] MEDS: ZOSYN 50 IV ×4 (02:54→21:37)
[2024-01-28] MEDS: ATIVAN 0.5 MG IV ×2 (03:18→17:50)
[2024-01-28] MEDS: NSS (PRESERVATIVE FREE) 0.25 ML IV ×2 (03:19→17:51)
[2024-01-28 05:21] VITALS: BMI 19.5
[2024-01-28 07:00] VITALS: BP 141/65
--- NOTE | 2024-01-28 07:11 | PTCARENOTE ---
~20:40 bed alarm ringing. Pt found with legs over side rail, pulling on mitts, and stating 'I need to leave!' This RN spoke calmly with pt asking pt to bring legs into bed and to lay down. Pt swung arms and kicked legs at this RN. Notified [employer]
Sabina Ruiz. Restraint order placed. Restraints placed. Pt continued to swing legs over side rail. This RN asked pt to keep legs in bed repeatedly. Pt positioned with HOB raised and offered apple sauce. Pt kept legs in bed.
~03:15 Pt yelling out, cursing at nursing staff, and swinging legs. PRN Ativan administered.
~03:30 Pt asleep, resting comfortably, and no signs of distress. Plan of care ongoing.
--- NOTE | 2024-01-28 09:10 | W.PN.HOSP.TC ---
Today's Communication/Plan
-
Psych evaluation
c/w IVF
Comfort feeding
Assessment / Plan
Assessment / Plan
Physical exam:
General: less agitated, in restraints
HEENT: Moist mucous membranes and PERRLA
Respiratory: Clear; No Wheezes, Rales or Rhonchi
Cardiac: S1/S2 and Regular Rhythm; No Murmur
GI: Soft, Non Tender, Non Distended and Normal Bowel Sounds
Genito-urinary: owusu,
Musculoskeletal: No Clubbing, No Cyanosis and No Edema
Neuro: Awake and Alert
Psych: No Anxious or Depressed
A/P: Patient is an 88y M with PMH significant for dementia who presents to ED for evaluation of L scrotal wound after recent surgery.
Left Inguinal Hernia
Scrotal Wound Dehiscence
- s/p open inguinal hernia repair with mesh and scrotal wound exploration / packing.
- Colon in the hernia sac was viable.
- Post-op pain control, abx, etc.
- Local care for scrotal wound / packing / etc.
- Follow for any new / worsening symptoms.
- Finished ABx.
- Diet advanced per surgery
Dysphagia
-speech recs npo but okay for meds.
-IVF continued while remains NPO.
- pt is failing swallow trials at times, change in mental status is also contributing, will do comfort feeding with modified diet sips/small spoons for now
- Appreciate speech therapist help
Acute Urinary retention
-started Flomax
-Owusu catheter placement
-urology has been consulted , keep Owusu upon dc
Constipation
-started on bowel regimen
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
- He is confused with agitation
He was placed on PRN Ativan ( home medicine)
Will ask psych to evaluate the pt.
On restraints
-increased Abilify to hope no need restraints
-
PTSD
-Monitored mentation closely. Episode of agitation in the hospital per nephew.
DVT Prophylaxis: Lovenox
CODE STATUS was confirmed DNR/DNI.
Total time spent to see the patient on the floor, examine the patient, review data and lab results, discuss treatment plan with patient, nursing staff around 55 minutes
Anticipated Discharge: 24 - 48 hours
Subjective/Interval History
-
Date of Service: January 28, 2024
No fevers
was agitated last night and given Ativan
Objective Data
-
Vital Signs:
Vital Signs
Temp Pulse Resp BP Pulse Ox
97.7 F 69 16 141/65 95
01/28/24 07:00 01/28/24 07:00 01/28/24 07:00 01/28/24 07:00 01/28/24 07:00
I&O
01/27/24 01/28/24 01/29/24
06:59 06:59 06:59
Intake Total 2039 / 2039 2100 / 2100
Output Total 875 / 875 1000 / 1000
Balance 1165 / 1165 1100 / 1100
--- NOTE | 2024-01-28 10:02 | CM ---
Pt is a resident at [facility].
Pt remain confused and has behaviors . She needs soft restraints.
She will return to [address] with Michelle LOWE.
Nneka Temporary DON at [address] [phone].
[facility]
[address]
Plan; Patient to return to [address] with [facility]
[2024-01-28] MEDS: FLOMAX 0.4 MG PO (10:09)
[2024-01-28] MEDS: DEPAKOTE SPRINKLE 125 MG PO ×2 (10:10→21:37)
[2024-01-28] MEDS: ABILIFY 5 MG PO (10:10)
[2024-01-28 12:34] VITALS: BP 112/56
--- NOTE | 2024-01-28 12:41 | CS.PSYCHR ---
Consult Summary - Psychiatry
-
Pt is an 88 yo male with hx of dementia, who presented to ED 01/21 for evaluation of open L scrotal wound. Patient reportedly underwent surgery at [facility] on 01/16/24 for suspected hydrocele; however, contents found to be bowel / hernia and not
hydrocele. Patient was reportedly discharged with an open wound of the L scrotum. Pt underwent L inguinal hernia repair and scrotal wound exploration. Psychiatry asked to see for agitation. Pt seen reclining in bed, in soft wrist restraints and
mitts. Pt awake, but not able to give information. He appears to nod off with he eyes open. No acute agitation at present. Pt noted agitated, restless last night, swinging legs over the bed rail, kicking, pulling at Da Silva/tubes.
Psych medications: Depakote 125 mg BID, Abilify 2 mg QD, Remeron 15 mg HS
Psych Hx: none noted, other than dementia
MSE: reclining in bed, in soft restraints and mitts, not agitated this morning. Pt not able to answer questions. No overt signs of psychosis. No restlessness or EPS
Imp: Delirium on dementia, with agitation
Rec: agree with trying increased Abilify, need to monitor for restlessness- a common side effect; continue IV Ativan prn
will follow
[2024-01-28] MEDS: DULCOLAX RECTAL (14:32)
[2024-01-28 15:00] VITALS: BP 112/57
--- NOTE | 2024-01-28 16:07 | W.PN.URO.CBU ---
Today's Communication / Plan
-
per hospitalist
Assessment / Plan
-
acute urinary retention keep owusu probable outpatient trial of void
Diagnosis
-
Date of Service: January 28, 2024
-
Patient Diagnosis:
Post Op Day:
Patient Diagnosis:
Post Op Day:
Patient Diagnosis:
Post Op Day:
Patient Diagnosis:urinary retention post op emerget hernia repair and failed scrotal exploration a day earlir
Post Op Day:
Subjective
-
cannbut cannot voidot swallow
Objective
-
Vital Signs
Temp Pulse Resp BP Pulse Ox
97.7 F 69 16 141/65 95
01/28/24 07:00 01/28/24 07:00 01/28/24 07:00 01/28/24 07:00 01/28/24 09:00
Intake and Output
01/27/24 01/28/24 01/29/24
06:59 06:59 06:59
Intake Total 2040 / 2040 2100 / 2100
Output Total 875 / 875 1000 / 1000
Balance 1165 / 1165 1100 / 1100
Intake:
Oral fluids 120 / 120
IV fluids (Total) 1840 / 1840 1780 / 1780
IV piggybacks 200 / 200 200 / 200
Output:
Urine, Owusu 500 / 500 1000 / 1000
Urine, Voided 375 / 375
Laboratory Results
01/27/24 08:26
01/27/24 08:26
Review of Systems
-
: Difficulty Voiding
Physical Exam
-
General - well developed, well nourished, no acute distress
Chest - clear bilaterally
Abdomen - soft, non-tender, positive bowel sounds, no CVAT, no incisional pain or distention
Genitalia - normal
Rectal - normal
Skin - warm & dry with no rash
Neuro - AOx3, no motor deficits
Extremities - no clubbing, no cyanosis, no edema
Incision - clean, dry
Dressing - clean, dry, intact
[2024-01-28] MEDS: LOVENOX 40 MG SC (17:46)
--- NOTE | 2024-01-28 18:20 | PTCARENOTE ---
1730 Noted pt removed self left Hand Mitt, and had removed stat lock with left hand. Da Silva catheter remain intact. When attempted to reapply left hand Mitt, Pt started yelling out and using foul language. Also attempting to get OOB by placing legs
over side rails.
1750 Ativan 0.5 mg IV given as ordered per MD. Noted pt starting to calm and resting at intervals, continue to monitor pt closely.
[2024-01-28] MEDS: REMERON 15 MG PO (21:37)
[2024-01-28 23:01] VITALS: BP 163/61
[2024-01-29] MEDS: ZOSYN 50 IV (03:00)
[2024-01-29] MEDS: NSS 1000 IV ×3 (04:02→15:27)
[2024-01-29 04:27] VITALS: BMI 19.6
--- NOTE | 2024-01-29 05:47 | DOWNTIME ---
There was a [employer] Client Hand Worker Downtime on 01/29/2024 from 0100 to 01/29/2024 at 0355. Downtime documentation of patient's care, including medication administrations, has been reconciled in the electronic record per guidelines. Refer to the
patient's paper chart under the miscellaneous tab to see printed paper medication records and downtime forms.
[2024-01-29 07:00] VITALS: BP 147/63
[2024-01-29] MEDS: DULCOLAX 10 MG RECTAL (07:50)
[2024-01-29] MEDS: ZOSYN IV (07:50)
[2024-01-29] MEDS: DEPAKOTE SPRINKLE 125 MG PO ×2 (07:50→21:12)
[2024-01-29] MEDS: ABILIFY 5 MG PO (07:50)
[2024-01-29] MEDS: FLOMAX 0.4 MG PO (07:50)
--- NOTE | 2024-01-29 09:06 | W.PN.HOSP.TC ---
Today's Communication/Plan
-
Wean off restraints
c/w comfort feeding
Finish Abx
Assessment / Plan
Assessment / Plan
Physical exam:
General: less agitated, in restraints
HEENT: Moist mucous membranes and PERRLA
Respiratory: Clear; No Wheezes, Rales or Rhonchi
Cardiac: S1/S2 and Regular Rhythm; No Murmur
GI: Soft, Non Tender, Non Distended and Normal Bowel Sounds
Genito-urinary: owusu,
Musculoskeletal: No Clubbing, No Cyanosis and No Edema
Neuro: Awake and Alert
Psych: No Anxious or Depressed
A/P: Patient is an 88y M with PMH significant for dementia who presents to ED for evaluation of L scrotal wound after recent surgery.
Left Inguinal Hernia
Scrotal Wound Dehiscence
- s/p open inguinal hernia repair with mesh and scrotal wound exploration / packing.
- Colon in the hernia sac was viable.
- Post-op pain control, abx, etc.
- Local care for scrotal wound / packing / etc.
- Follow for any new / worsening symptoms.
- Finished ABx today , did 6 days of IV Abx.
- Diet advanced per surgery
Dysphagia
-speech recs npo but okay for meds, comfort feeding if knowing the risks.
-IVF continued while remains decreased oral intake.
- Appreciate speech therapist help
Acute Urinary retention
-started Flomax
-Owusu catheter placement
-urology has been consulted , keep Owusu upon dc
Constipation
-started on bowel regimen
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
- He is confused with agitation
He was placed on PRN Ativan ( home medicine)
Consulted psych, ok to c/w high dose Abilify, Use PRN Ativan
On restraints
-increased Abilify to hope no need restraints
-
PTSD
-Monitored mentation closely. Episode of agitation in the hospital per nephew.
DVT Prophylaxis: Lovenox
CODE STATUS was confirmed DNR/DNI.
Total time spent to see the patient on the floor, examine the patient, review data and lab results, discuss treatment plan with patient, psychiatrist, nursing staff around 57 minutes
Anticipated Discharge: Within 24 hours
Subjective/Interval History
-
Date of Service: January 29, 2024
Still confused and on restraints
Pt denies pain but reports thirst
Objective Data
-
Vital Signs:
Vital Signs
Temp Pulse Resp BP Pulse Ox
98.4 F 79 18 147/63 97
01/29/24 07:00 01/29/24 07:00 01/29/24 07:00 01/29/24 07:00 01/29/24 07:00
I&O
01/28/24 01/29/24 01/30/24
06:59 06:59 06:59
Intake Total 2100 / 2100 2660 / 2660
Output Total 1000 / 1000 1800 / 1800
Balance 1100 / 1100 860 / 860
[2024-01-29] MEDS: TYLENOL 500 MG PO ×2 (14:34→21:12)
--- NOTE | 2024-01-29 15:01 | CM ---
Patient to return to [address] when stable.
[facility]
[phone]

PCP: Dr. Ta
Nneka Barrera DON at [facility]
[phone]
--- NOTE | 2024-01-29 15:08 | W.PN.UPDATE ---
Update Note
Progress Note Update
patient seen chart reviewed discussed w dr farr and nursing. patient was sitting in the middle of the nursing station with nursing students helping him to eat lunch. he was calm and focused on eating. dr farr increase abilify to 5 mg. he seems to
be tolerating it and nsg reports they feel there has been an improvement. did not make any changes in psych medications
[2024-01-29 15:09] VITALS: BP 131/60
[2024-01-29] MEDS: LOVENOX 40 MG SC (18:32)
[2024-01-29] MEDS: REMERON 15 MG PO (21:12)
--- NOTE | 2024-01-29 21:43 | PTCARENOTE ---
Renewal order obtained from [facility] Charlette Swan at 2133 for restraints but for four side rails only.
[2024-01-29 23:02] VITALS: BP 115/57
[2024-01-30] MEDS: NSS 1000 IV (05:42)
[2024-01-30 06:00] VITALS: BMI 19.6
[2024-01-30 07:05] VITALS: BP 128/63
[2024-01-30] MEDS: DULCOLAX 10 MG RECTAL (07:30)
[2024-01-30] MEDS: DEPAKOTE SPRINKLE 125 MG PO (07:35)
[2024-01-30] MEDS: ABILIFY 5 MG PO (07:35)
[2024-01-30] MEDS: TYLENOL 500 MG PO ×2 (07:35→15:31)
[2024-01-30] MEDS: FLOMAX 0.4 MG PO (07:35)
--- NOTE | 2024-01-30 08:36 | W.PN.HOSP.TC ---
Today's Communication/Plan
-
Likely discharge today
Assessment / Plan
Assessment / Plan
Physical exam:
General: less agitated, in restraints
HEENT: Moist mucous membranes and PERRLA
Respiratory: Clear; No Wheezes, Rales or Rhonchi
Cardiac: S1/S2 and Regular Rhythm; No Murmur
GI: Soft, Non Tender, Non Distended and Normal Bowel Sounds
Genito-urinary: owusu,
Musculoskeletal: No Clubbing, No Cyanosis and No Edema
Neuro: Awake and Alert
Psych: No Anxious or Depressed
A/P: Patient is an 88y M with PMH significant for dementia who presents to ED for evaluation of L scrotal wound after recent surgery.
Left Inguinal Hernia
Scrotal Wound Dehiscence
- s/p open inguinal hernia repair with mesh and scrotal wound exploration / packing.
- Colon in the hernia sac was viable.
- Post-op pain control, abx, etc. On Tylenol.
- Local care for scrotal wound / packing / etc.
- Finished ABx, did 6 days of IV Abx.
- Diet advanced
Dysphagia
- pt is tolerating modified diet and finishing > 75% of his trays
Acute Urinary retention
-started Flomax
-Owusu catheter placement
-urology has been consulted , keep Owusu upon dc
Constipation
-started on bowel regimen
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
- He is less confused, no agitation
He was placed on PRN Ativan ( home medicine)
Consulted psych, ok to c/w high dose Abilify, Use PRN Ativan
Off restraints
-
PTSD
-Monitored mentation closely. Episode of agitation in the hospital per nephew.
DVT Prophylaxis: Lovenox
CODE STATUS was confirmed DNR/DNI.
Total dc time spent to see the patient on the floor, examine the patient, review data and lab results, discuss discharge/treatment plan with patient, psychiatrist, transplant case manager, nursing staff around 67 minutes
Anticipated Discharge: Today
Subjective/Interval History
-
Date of Service: January 30, 2024
No fever
Off restraints
Objective Data
-
Vital Signs:
Vital Signs
Temp Pulse Resp BP Pulse Ox
97.9 F 72 18 128/63 98
01/30/24 07:05 01/30/24 07:05 01/30/24 07:05 01/30/24 07:05 01/30/24 07:05
I&O
01/29/24 01/30/24 01/31/24
06:59 06:59 06:59
Intake Total 2660 / 2660 2496 / 2496
Output Total 1800 / 1800 1650 / 1650
Balance 860 / 860 846 / 846
--- NOTE | 2024-01-30 10:09 | CM ---
Addendum entered by Jyoti Kirk 01/30/24 14:04:
Ambulance set up for 5:30pm. Emergency contact notified along with homecare agency.
Original Note:
Plan is for patient to return to [address] today, message left with MIESHA Early at [facility].
[facility]
[phone]

PCP: Dr. Ta
Nneka WHITESIDE at [facility]
[phone]
--- NOTE | 2024-01-30 13:31 | W.PN.UPDATE ---
Update Note
Progress Note Update
patient seen chart reviewed. discussed w nursing and with dr farr. patient does seem to be settling down and may be dc today. the only suggestion i might have is that need for depakote be assessed. he is on a very small dose which is unlikely to
mount a therapeutic level so it might be advisable to reassess whether it is needed in the alf. psych will sign off.
[2024-01-30 14:14] VITALS: BP 118/65
[2024-01-30] MEDS: LOVENOX 40 MG SC (15:32)
[2024-01-30 15:36] VITALS: BP 134/69
--- NOTE | 2024-01-31 16:13 | W.DCSUMMARY ---
Discharge Summary
Discharge Data
Date of Admission: 01/22/24
Date of Discharge: 01/30/24
-
Pending Results: No
Hospital Course
88 years old male who presented to the emergency room from assisted after having trouble voiding, lethargy, fever. Patient had recent attempted trans scrotal hydrocelectomy by urologist at [facility] on 01/16/2024. Per report, at the
time of that surgery that identified an inguinal hernia and aborted the procedure. Since that time he has had opening of his scrotal wound. On arrival he had temperature 99.3, and he was lethargic. Scan of the abdomen and pelvis with intravenous
contrast showed 19 cm left inguinal hernia which contained large segment of feces filled sigmoid colon without associated obstruction or strangulation. Patient was started on intravenous antibiotic, surgery was consulted. Patient underwent open
left inguinal hernia repair with mesh, scrotal wound exploration. Patient was diagnosed with left inequality hernia and scrotal wound dehiscence. Patient had bowel regimen for constipation and he had multiple bowel movements reported by staff and
they were not bloody. Patient was evaluated by urology, scrotal wound appeared clean without cellulitis. Patient had urine retention and Da Silva catheter was placed. Urology recommended to maintain Da Silva catheter and outpatient follow-up. Patient
had underlying severe dementia. Patient remained confused with periods of agitation and inability to feed himself. Neurology was consulted and recommended to continue fall, seizure precautions with home dose of Depakote. He was diagnosed with
chronic neurodegenerative encephalopathy with parkinsonism. Patient started to become agitated and needed restraints to avoid pulling Da Silva catheter or falls. Psychiatry was consulted and his Abilify dose was increased with good clinical response.
Diet was advanced slowly with aspiration precautions and mechanical soft. He was able to tolerate diet. Patient remained hemodynamically stable and was discharged back to assisted. His family was informed about his hospital course including
increasing Abilify dose.
Discharge Plan
-
Patient Disposition: [facility]/SNF
Discharge Diagnosis/Procedures: Open LEFT inguinal hernia repair with mesh
Acute delirium on underlying Senile Dementia with Behavioral Disturbance, resolved
Dysphagia, back on modified diet
Condition: Fair
Diet: Regular
Additional Diets: mechanical soft/chopped
Activity: No strenuous activity
Additional Activity: No heavy lifting (>20 lbs) or strenuous activities for 4 weeks postoperatively
Driving Restrictions: No driving
Bathing Restrictions: OK to Shower
Wound Care: Keep incision clean and dry. Glue will flake off in 2 to 3 weeks. Stitches will dissolve. Cover scrotal area with wet to dry gauze daily.
Activity Restrictions/Additional Instructions:
Call for fevers (>100.5), nausea or vomiting, worsening abdominal or groin pain
Referrals:
Octavio Webb MD [Active] - in one to two weeks
Federico Vega MD [Active] - in two to four weeks
Dieudonne Ta DO [Family Provider] -
Prescriptions:
New
acetaminophen [Tylenol Extra Strength] 500 mg Tablet
500 mg PO TID Qty: 15 0RF
tamsulosin 0.4 mg Capsule
0.4 mg PO DAILY Qty: 30 0RF
Continued
loperamide [Anti-Diarrheal (loperamide)] 2 mg Capsule
4 mg PO Q6HPRN PRN (Reason: diarrhea)
thiamine HCl (vitamin B1) 100 mg Tablet
100 mg PO DAILY
guaifenesin 100 mg/5 mL Liquid
200 mg PO Q4HPRN PRN (Reason: cough)
lorazepam 0.5 mg Tablet
0.5 mg PO Q6HPRN PRN (Reason: anxiety)
folic acid 1 mg Tablet
1 mg PO DAILY
divalproex 125 mg Capsule, Delayed Rel Sprinkle
125 mg PO BID
mirtazapine 7.5 mg Tablet
15 mg PO HS
Changed
aripiprazole 2 mg Tablet
5 mg PO DAILY Qty: 0 0RF
Discontinued
amoxicillin-pot clavulanate 500-125 mg Tablet
1 tab PO BID
Discharge Orders:
Discharge Patient (As Directed); Ordered 01/30/24
Ordered By: Holly Carpio
Discharge Date and Time
Discharge Date/Time: 01/30/24 17:59
Print Language: SAMI
== END 2024-01-30 17:59 | DRG 351 ==
LOC: 4 WEST ACU 22:06
PROVIDERS: Hospitalist; Physician Assistant; ADMITTING PHYSICIAN Hospitalist; ATTENDING PHYSICIAN Internal Medicine; CONSULT PHYSICIAN Psychiatry & Neurology Neurology; CONSULT PHYSICIAN Psychiatry & Neurology Psychiatry; CONSULT PHYSICIAN Surgery; EMERGENCY PHYSICIAN Emergency Medicine; FAMILY PHYSICIAN Internal Medicine Geriatric Medicine; OTHER PHYSICIAN Urology
PROC: 0YU60JZ Supplement Left Inguinal Region with Synthetic Substitute, Open Approach (ICD-10-PCS; 2024-01-22)
DX: K40.30 Unilateral inguinal hernia, with obstruction, without gangrene, not specified as recurrent (principal); F03.911 Unspecified dementia, unspecified severity, with agitation; N39.0 Urinary tract infection, site not specified; T81.31XA Disruption of external operation (surgical) wound, not elsewhere classified, initial encounter; F05 Delirium due to known physiological condition; R64 Cachexia; Z68.1 Body mass index [BMI] 19.9 or less, adult; Z66 Do not resuscitate; K59.09 Other constipation; F43.10 Post-traumatic stress disorder, unspecified; R33.8 Other retention of urine; R13.19 Other dysphagia; Z79.899 Other long term (current) drug therapy; Z11.52 Encounter for screening for COVID-19; Z78.1 Physical restraint status
CPT/HCPCS: 51701; 51798; 70450; 71045; 74177; 80048; 80053; 81003; 81015; 82962; 83605; 83735; 85025; 85027; 87040; 87086; 87502; 87811; 92526; 92610; 93005; 96374; 97163; 97166; 97530; 99285; C1781; Q9967

== ENCOUNTER 2024-02-01 02:55 | Emergency (ER) | payer MEDICARE, OTHER, SELFPAY ==
[2024-02-01 03:11] VITALS: BP 159/71
[2024-02-01 04:07] VITALS: BP 124/56
[2024-02-01 04:08] LABS: % Basophils 0.4 % (0-2); % Eosinophils 1.6 % (0-6); % Immature Granulocytes 0.8 % (0-0.5); % Lymphocytes 4.5 % (20.5-51.1); % Neutrophils 86.7 % (42.2-75.2); Absolute Eosinophils 0.1 10^3/uL (0-0.7); Absolute Immature Granulocytes 0.1 10^3/uL (0-0.05); Absolute Lymphocytes 0.4 10^3/uL (1.2-3.4); Absolute Monocytes 0.5 10^3/uL (0.1-0.6); Absolute Neutrophils 7.4 10^3/uL (1.4-6.5); Hematocrit 35.5 % (39.0-52.0); Hemoglobin 11.8 g/dL (13.0-18.0); Mean Corp Hgb Conc. 33.2 g/dL (33.0-37.0); Mean Corpuscular Volume 93.2 fL (80.0-94.0); Mean Platelet Volume 9.4 fL (7.4-10.4); Nucleated Red Blood Cells % 0 % (-); Platelet Count 293 10^3/uL (130-400); Red Blood Cell Count 3.81 10^6/uL (4.70-6.10); Red Cell Dist. Width 13.7 % (11.5-14.5); White Blood Cell Count 8.5 10^3/uL (4.8-10.8)
--- NOTE | 2024-02-01 04:15 | ED.MUSCINJ ---
HPI-Injury
<JEIMY Zamora - Last Filed: 02/01/24 06:42>
General
Chief Complaint: Fall
Source: patient
Exam Limitations: dementia
Time Seen by Provider: 02/01/24 04:09
Nursing documentation reviewed up to this point in time: agreed with
History of Present Illness-Injury
Initial Injury comments:
Patient is a 88yo M w/ PMH of dementia, weakness, and failure to thrive who presents to ED from nursing facility after a fall. He has ~1in. laceration and bump on R upper forehead. He denies headache, nausea, vomiting, and other body pain. He denies
dizziness or tripping before fall.
Review of Systems
<JEIMY Zamora - Last Filed: 02/01/24 06:42>
Review of Systems
Cardiac: Denies syncope
ABD/GI: Denies abdominal pain, nausea or vomiting
Musculoskeletal: Denies joint pain or muscle pain
Neurological: Reports weakness; Denies dizzy or headache
Phy Exam
<JEIMY Zamora - Last Filed: 02/01/24 06:42>
General Physical Exam
General Presentation: no apparent distress
General age: appears older than age
General Habitus: debilitated, elderly and failure to thrive
General Chronic Disability: demented
ENT Exam
ENT Exam: other (~2.25cm superficial laceration on R upper forehead. Jagged edges. Still bleeding some. No foreign bodies observed in wound. Erythematous bump under laceration. )
Cardiovascular Exam
Cardiovascular Exam: regular rate/rhythm, no edema, no gallop and no murmur
Pulmonary Exam
Pulmonary Exam: lungs clear, no respiratory distress, no rales, no crackles, no rhonchi and no wheezing
Neurological Exam
Neurological Exam: non verbal
Injury Course
<ST NoahPA - Last Filed: 02/01/24 06:42>
Orders/Labs/Results
Orders:
Orders
02/01/24 03:23
CT Head W/o Iv Contrast Urgent
Comment:
Reason For Exam: FALL, + HEAD STRIKE
02/01/24 03:59
Complete Blood Count/With Diff Urgent
Comprehensive Metabolic Panel Urgent
02/01/24 04:30
Lidocaine/Epinephrine/Tetracai [Let Topical Anesthetic Gel] 3 ml TOPICAL NOW STA
Tetanus/Diphth/Acelpertussis [Adacel] 0.5 ml IM .ONCE ONE
Abnormal Lab Results
02/01/24
03:59
RBC 3.81 L 10^6/uL
(4.70-6.10)
Hgb 11.8 L g/dL
(13.0-18.0)
Hct 35.5 L %
(39.0-52.0)
Abs Immat Gran (auto) 0.1 H 10^3/uL
(0-0.05)
Absolute Neuts (auto) 7.4 H 10^3/uL
(1.4-6.5)
Absolute Lymphs (auto) 0.4 L 10^3/uL
(1.2-3.4)
Immature Gran % 0.8 H %
(0-0.5)
Neutrophils % 86.7 H %
(42.2-75.2)
Lymphocytes % 4.5 L %
(20.5-51.1)
Glucose 129 H mg/dl
(70-99)
Total Protein 5.4 L g/dl
(6.3-8.2)
Albumin 2.9 L g/dl
(3.5-5.0)
02/01/24 03:59
02/01/24 03:59
<Thelma Rosario, DO - Last Filed: 02/01/24 05:30>
Orders/Labs/Results
Orders:
Orders
02/01/24 03:23
CT Head W/o Iv Contrast Urgent
Comment:
Reason For Exam: FALL, + HEAD STRIKE
02/01/24 03:59
Complete Blood Count/With Diff Urgent
Comprehensive Metabolic Panel Urgent
02/01/24 04:30
Lidocaine/Epinephrine/Tetracai [Let Topical Anesthetic Gel] 3 ml TOPICAL NOW STA
Tetanus/Diphth/Acelpertussis [Adacel] 0.5 ml IM .ONCE ONE
Abnormal Lab Results
02/01/24
03:59
RBC 3.81 L 10^6/uL
(4.70-6.10)
Hgb 11.8 L g/dL
(13.0-18.0)
Hct 35.5 L %
(39.0-52.0)
Abs Immat Gran (auto) 0.1 H 10^3/uL
(0-0.05)
Absolute Neuts (auto) 7.4 H 10^3/uL
(1.4-6.5)
Absolute Lymphs (auto) 0.4 L 10^3/uL
(1.2-3.4)
Immature Gran % 0.8 H %
(0-0.5)
Neutrophils % 86.7 H %
(42.2-75.2)
Lymphocytes % 4.5 L %
(20.5-51.1)
Glucose 129 H mg/dl
(70-99)
Total Protein 5.4 L g/dl
(6.3-8.2)
Albumin 2.9 L g/dl
(3.5-5.0)
02/01/24 03:59
02/01/24 03:59
Procedures
<Carmella E. Ussai, STPA - Last Filed: 02/01/24 06:42>
Laceration Closure
Right Forehead:
Status of Wound: clean
Size of Wound in cm: 2.25
Description of Wound Edges: ragged
Preparation: cleaned with saline
Anesthesia: Topical-LET
Revision/Debridement: routine- no revision and irrigate-direct pressure
Wound exploration: explored to base- no FB
Type of Closure: Dermabond-skin glue
<JEIMY Zamora - Last Filed: 02/01/24 06:42>
*Critical Care Note
Total Time (30-74mins, 75-104mins- exclusive of procedures): Not Applicable
<Thelma Rosario DO - Last Filed: 02/01/24 05:30>
*Radiology
Radiology exam reviewed: radiology read reviewed (CT of the head shows no acute traumatic findings)
*Pulse Oximetry
Patient hypoxic: no
ED Attending Note
<JEIMY Zamora - Last Filed: 02/01/24 06:42>
-
Portions of this chart may have been created with voice recognition software.� Occasional wrong word or��sound alike� substitutions may have occurred due to the inherent limitations of voice recognition software.
<Thelma Rosario DO - Last Filed: 02/01/24 05:30>
ED Attending Note
Patient seen and examined by attending physician: Yes
I performed the substantive portion of visit, reviewed & personally made and approve the management plan that is documented in note by myself or REBECCA.: Yes
ED Attending Note:
This is an 88-year-old gentleman with history of advanced dementia recently hospitalized 01/21 until 01/30 for treatment of UTI, left scrotal wound with large left inguinal hernia for which he underwent inguinal hernia repair during hospitalization.
Treated for UTI and Da Silva catheter placed for chronic retention. He was discharged on the to local senior living due to advanced dementia, essentially nonverbal, inability to feed himself or care for himself.
He arrives from senior living after suffering a fall in the bathroom. I sustained a laceration to his right lateral forehead.
Not maintained on anticoagulants. According to senior living he remains at his baseline mental status.
Unsure as to last Tdap.
Records reviewed, only 1 previous visit here for hospitalization 01/21-01/30
TRAUMA EXAM:
VITAL SIGNS: Vital signs reviewed, cooperative
DISTRESS: No active disease. 88-year-old elderly, frail gentleman is awake, nonverbal. Sporadically will follow a few simple commands.
EYES: Pupils reactive, no orbital trauma
NOSE: No deformity or epistaxis
FACE AND SCALP: There is a 2.25 cm laceration right lateral forehead with mildly abraded edges. Laceration is deep dermal to subcuticular in depth. Intermittent minimal venous oozing. No soft tissue swelling. Mild local tenderness to palpation.
No palpable bony abnormality.
NECK: Supple, no appreciable tenderness. No step-off deformity.
BACK: Back nontender, pelvis stable to compression
RESPIRATORY: No distress, breath sounds normal, no tender chest wall
CARDIAC: No murmur, pulses equal and strong
ABDOMEN: Soft nontender bowel sounds normal. Left inguinal hernia incision dry and intact wound glue. Da Silva catheter in place with leg bag.
SKIN: Warm and dry, minimally pale in color. Fair turgor.
EXTREMITIES: Nontender
NEUROLOGICAL: Awake, nonverbal. Moderate cogwheel rigidity upper extremities. No lateralizing weakness.
PSYCH: Cooperative with staff.
Concern for closed head injury and due to advanced age will check CT of the head.
Will give Tdap booster.
Will plan for wound glue repair of scalp wounds.
If CT unremarkable we will plan for discharge back to senior living for continued care.
Will add Keflex for wound infection prevention.
Discharge Plan
Departure
Patient Disposition: Halfway/SNF
Date of Disposition: 02/01/24
Time of Disposition: 05:28
Patient with high blood pressure during this ER visit?: No
Condition: Good
Discharge Problem:
Fall at senior living, Forehead laceration
Instructions: Laceration Repair With Glue (DC), Preventing falls in adults, Tdap vaccine
Prescriptions:
New
cephalexin 500 mg capsule
1,000 mg PO BID 7 Days Qty: 28 0RF
No Action
loperamide [Anti-Diarrheal (loperamide)] 2 mg Capsule
4 mg PO Q6HPRN PRN (Reason: diarrhea)
thiamine HCl (vitamin B1) 100 mg Tablet
100 mg PO DAILY
guaifenesin 100 mg/5 mL Liquid
200 mg PO Q4HPRN PRN (Reason: cough)
lorazepam 0.5 mg Tablet
0.5 mg PO Q6HPRN PRN (Reason: anxiety)
folic acid 1 mg Tablet
1 mg PO DAILY
divalproex 125 mg Capsule, Delayed Rel Sprinkle
125 mg PO BID
mirtazapine 7.5 mg Tablet
15 mg PO HS
acetaminophen [Tylenol Extra Strength] 500 mg Tablet
500 mg PO TID Qty: 15 0RF
tamsulosin 0.4 mg Capsule
0.4 mg PO DAILY Qty: 30 0RF
aripiprazole 2 mg Tablet
5 mg PO DAILY Qty: 0 0RF
Referrals:
Dieudonne Ta DO [Family Provider] - Call in 1-3 days for appt
Interventions
Interventions:
*Risk Screen - Suicide Last Done: 02/01/24 02:58
*General Assessment Last Done: 02/01/24 02:58
*Neglect/Abuse Screening Last Done: 02/01/24 02:58
ED- Fall Risk Assessment Last Done: 02/01/24 03:04
*ED COVID-19 Vaccine History Last Done: 02/01/24 02:58
ED-Musculoskeletal Assessment Last Done: 02/01/24 03:04
ED- Neurological Assessment Last Done: 02/01/24 03:04
ED-Skin Assessment Last Done: 02/01/24 03:04
Discharge Date and Time
Print Language: GERMAN
[2024-02-01 04:21] LABS: ALT (SGPT) 20 U/L (0-50); AST (SGOT) 30 U/L (17-59); Albumin 2.9 g/dl (3.5-5.0); Alkaline Phosphatase 97 U/L (38-126); Blood Urea Nitrogen 15 mg/dl (9-20); Calcium 8.5 mg/dl (8.4-10.2); Carbon Dioxide 27 mmol/L (22-30); Chloride 104 mmol/L (98-107); Glucose 129 mg/dl (70-99); Potassium 3.5 mmol/L (3.5-5.1); Sodium 140 mmol/L (135-145); Total Bilirubin 0.6 mg/dl (0.2-1.3); Total Protein 5.4 g/dl (6.3-8.2); eGFR > 60.00
[2024-02-01] MEDS: ADACEL 0.5 ML IM (04:36)
[2024-02-01] MEDS: LET TOPICAL ANESTHETIC GEL 3 ML TOPICAL (04:37)
[2024-02-01 05:00] VITALS: BP 128/55
[2024-02-01 06:00] VITALS: BP 123/57
[2024-02-01 06:57] VITALS: BP 123/53
--- NOTE | 2024-02-01 07:14 | EDRN ---
After pt left I found a prescription for cephalexin NOT with his discharge papers so I had the unit sec FAX it to the facility
== END 2024-02-01 06:58 ==
LOC: EMR 02:55
PROVIDERS: EMERGENCY PHYSICIAN Emergency Medicine; FAMILY PHYSICIAN Internal Medicine Geriatric Medicine
DX: S01.81XA Laceration without foreign body of other part of head, initial encounter (principal); W19.XXXA Unspecified fall, initial encounter; Z23 Encounter for immunization
CPT/HCPCS: 99284; 12011; 90471; 70450; 80053; 85025; 90715